=== PATIENT | male | born 1980 | race Caucasian/White ===

== ENCOUNTER 2019-12-08 15:41 | Outpatient (CLI) | payer OTHER, SELFPAY ==
--- NOTE | ~2019-12-08 | XR_ITS ---
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 No fracture or dislocation or joint effusion is evident. No periosteal reaction or bone destruction. Joint spaces are preserved. No radiopaque intra-articular loose body or chondrocalcinosis. IMPRESSION: No acute radiographic bony or soft tissue finding Reviewed, dictated and finalized at location B.
== END 2019-12-08 15:42 ==
PROVIDERS: PCP Internal Medicine; Visit Provider Internal Medicine
DX: M25.562 Pain in left knee (principal)
CPT/HCPCS: 73560

== ENCOUNTER 2020-02-11 19:42 | Inpatient (IN) | payer OTHER, SELFPAY ==
--- NOTE | ~2020-02-11 | CT_ITS ---
EXAMINATION: CT abdomen pelvis w con INDICATION: Epigastric pain TECHNIQUE: Computed tomographic images of the abdomen and pelvis were obtained after the administrati on of 100 cc of Omnipaque 350 intravenous contrast. The dose-length product (DLP) was 1189.63 mGy-cm. Automated exposure control and iterative reconstruction technique were employed. COMPARISON: 01/26/2018 FINDINGS: The lung bases are clear. The heart size is normal. There is focal fatty infiltration of th e liver adjacent to the ligamentum teres. Punctate calcifications in an otherwise normal spleen likel y represent healed granulomatous disease. The pancreas and adrenal glands are normal. A stone is pres ent in the gallbladder near the fundus. The fundus of the gallbladder demonstrates mild wall thickeni ng beyond the area of the stone. The remainder of the gallbladder is otherwise normal in appearance. There is a 1.2 cm cyst of the right kidney upper pole. Additional hypoattenuating lesions of the kidn eys are too small to characterize but likely reflect cysts as well. No pathologically enlarged abdomi nal or pelvic lymph nodes are identified. There is no free intraperitoneal gas or evidence of bowel o bstruction. The appendix is normal. There are changes of lumbar fusion at L4-5 and L5-S1. IMPRESSION: 1. Cholelithiasis with focal inflammation of the gallbladder fundus. Reviewed, dictated and finalized at location A.
[2020-02-11 19:47] VITALS: BP 144/87; PULSE 78; RESP 18; TEMP 37.1; O2SAT 100
--- NOTE | 2020-02-11 19:57 | ED.ABDPAIN ---
HPI - Abdominal Pain General Chief Complaint: Abdominal Pain Stated Complaint: gall bladder Time Seen by Provider: 02/11/20 19:46 Source: RN notes reviewed History of Present Illness HPI narrative: Patient presents emergency department from home for abdominal pain. Patient states symptoms began 2 days ago. Pain is located across the bilateral upper abdomen worse on the right than the left. States is described as sharp and stabbing in nature. States he has had problems with his gallbladder before in the past and this feels similar. Denies any fevers or chills chest pain shortness of breath nausea vomiting diarrhea or any other symptoms. States he is taking no pain medication this evening Related Data Home Medications Medication Instructions Recorded Confirmed ibuprofen 800 mg tablet 800 mg PO BID tablet 05/10/19 01/06/20 Allergies Allergy/AdvReac Type Severity Reaction Status Date / Time No Known Allergies Allergy Verified 02/11/20 19:44 Review of Systems Review of Systems: Narrative: Gen.: Denies fevers or chills ENT: Denies congestion Respiratory: Denies shortness of breath or cough CV: Denies chest pain or palpitations GI: See HPI denies burning, urgency, frequency or hematuria Musculoskeletal: Denies back pain or muscle pain Neuro: Denies numbness, tingling, weakness or focal weakness Skin: Denies rash Except as documented, all other systems reviewed and negative PMF Past Medical History Medical History (Updated 02/11/20 @ 22:00 by Yuri Graves DO) Essential hypertension Family History Family History (Updated 06/04/18 @ 08:34 by DOCTOR UNKNOWN) Other Asthma Cerebrovascular accident Depression Diabetes mellitus Family history of alcoholism Family history of arthritis Family history of attention deficit hyperactivity disorder (ADHD) Family history of cardiovascular disease Family history of hearing loss Family history of malignant neoplasm Family history of mental disorder Family history of migraine headaches Family history of obesity Family history of seizure disorder Hypertension Social History Social History Smoking status: Never smoker Alcohol intake: never Gender identity (if verbalized by the patient): Male Exam Narrative: Exam Narrative: APPEARANCE: No acute distress, nontoxic, resting in bed HEENT: Normocephalic, atraumatic, OMM RESPIRATORY: No respiratory distress, clear to auscultation bilaterally with no rhonchi wheezing or rales CARDIOVASCULAR: RRR s murmur ABDOMINAL: Soft, nondistended, tender palpation in epigastric, right upper quadrant and left upper quadrant, no tenderness right lower quadrant left lower quadrant, no rebound or guarding MUSCULOSKELETAl: Moves all extremities. No clubbing, cyanosis or edema. NEURO: Awake and alert. Following commands, speech normal, no focal deficits SKIN:: Warm, dry. Normal Color PSYCHIATRIC: Normal affect/mood Course Course Emergency Course: Discussed with Dr. Olivo presentation work-up. Agrees with admission at this time. Request pain started on Zosyn with consult to hospitalist for medical management Discussed with Dr. Abad presentation work-up and agrees with consult Discussed with patient and family results of workup and diagnosis. Discussed need for admission. Patient and family understand and agree to current treatment plan Vital Signs Vital signs: Vital Signs Temperature 98.7 F 02/11/20 19:47 Pulse Rate 78 02/11/20 19:47 Respiratory Rate 18 02/11/20 19:47 Blood Pressure 144/87 H 02/11/20 19:47 Pulse Oximetry 100 02/11/20 19:47 Temperature 97.8 F 02/11/20 21:46 Pulse Rate 89 02/11/20 21:46 Respiratory Rate 24 H 02/11/20 21:46 Blood Pressure 131/65 02/11/20 21:46 Pulse Oximetry 99 02/11/20 21:46 MDM - Abdominal Pain Lab Data Result diagrams: 02/11/20 20:00 02/11/20 20:00
[2020-02-11 20:13] LABS: Basophils Percent Auto 0.4 % (0.2-1.2); Eosinophils Percent Auto 0.2 % (0-4.4); Hematocrit 44.9 % (42.0-52.0); Hemoglobin 15.2 g/dL (14.0-18.0); Immature Granulocyte Absolute 0.02 K/mm3 (0.00-0.031); Immature Granulocyte Percent A 0.2 % (0-0.5); Lymphocytes Absolute Auto 2.46 K/mm3 (0.9-3.2); Lymphocytes Percent Auto 29.5 % (18.3-44.2); Mean Corpuscular HGB Conc 33.9 g/dl (32-36); Mean Corpuscular Hemoglobin 27.6 pg (26-34); Mean Corpuscular Volume 81.5 fl (80-100); Mean Platelet Volume 10.1 fl (7.4-10.4); Monocytes Absolute Auto 0.4 K/mm3 (0.1-0.6); Neutrophils Absolute Auto 5.4 K/mm3 (1.3-6.7); Neutrophils Percent Auto 64.7 % (45.5-73.1); Platelet Count Result 215 k/mm3 (150-375); Red Blood Count 5.51 M/mm3 (4.6-6.20); Red Cell Distribution Width 13.2 % (11.5-14.5); White Blood Count 8.3 K/mm3 (4.5-10.0)
[2020-02-11] MEDS: MORPHINE SULFATE (*CRX) 4 MG/ML INJ IV PUSH ×2 (20:13→22:06)
[2020-02-11] MEDS: SODIUM CHLORIDE 0.9% IV 1,000 ML 999 ML IV CONT (20:13)
[2020-02-11 20:24] LABS: Alanine Aminotransferase 28 U/L (4-50); Albumin Level 4.7 g/dL (3.5-5.1); Alkaline Phosphatase 63 U/L (38-126); Anion Gap 8 mmol/L (8-16); Aspartate Amino Transferase 23 U/L (17-59); Blood Urea Nitrogen 11 mg/dL (9-20); Calcium 10.2 mg/dL (8.4-10.2); Carbon Dioxide 29 mmol/L (22-30); Chloride 103 mmol/L (98-107); Estimated CRCL calculation 88 ml/min; Estimated Glomerular Filt Rate > 60; Glucose 101 mg/dL (75-110); Lipase 107 U/L (23-300); Potassium 3.3 mmol/L (3.4-5.0); Sodium 140 mmol/L (137-145)
[2020-02-11 20:54] VITALS: BP 123/85; PULSE 62; RESP 24; TEMP 37.2; O2SAT 100
--- NOTE | 2020-02-11 21:03 | PC.NURSE ---
Patient requesting additional pain medication, EDP aware.
[2020-02-11 21:09] LABS: Add Urine Microscopic? YES; Appearance Urine Clear (Clear); Bilirubin Urine Negative (Negative); Blood Urine Negative (Negative); Color Urine Yellow (Yellow); Glucose Urine UA Negative (Negative); Ketones Urine Negative (Negative); Leukocyte Esterase Ur Negative LEU/UL (Negative); Mucus Urine Moderate /lpf; Nitrate Urine Negative (Negative); Protein Urine 1+ mg/dL (Negative); RBC Urine 0-2 /hpf (0-2); Specific Grav Ur 1.018 (1.001-1.035); WBC Urine 0-3 /hpf
--- NOTE | 2020-02-11 21:45 | ECG_ITS ---
Measurements Intervals [place] Rate: 52 P: 30 VT: 177 QRS: 3 QRSD: 101 T: 14 QT: 402 QTc: 377 Interpretive Statements SINUS BRADYCARDIA BORDERLINE T WAVE ABNORMALITY- INFERIOR LEADS BORDERLINE ECG Electronically Signed On 02-12-2020 7:47:03 CDT by Bert Ny D.O.
[2020-02-11 21:46] VITALS: BP 131/65; PULSE 89; RESP 24; TEMP 36.6; O2SAT 99
[2020-02-11 22:31] VITALS: BP 128/95; PULSE 57; RESP 11; TEMP 37.1; O2SAT 99
--- NOTE | 2020-02-11 23:24 | PM.IMCN ---
Assessment and Plan Assessment and plan (1) Acute cholecystitis: Code(s): K81.0 - Acute cholecystitis Status: Acute Assessment and Plan: NPO, continue pain control per primary team. IV hydration overnight. Continue antibiotics per primary team. Continue general surgery recommendations for same. (2) Hypokalemia: Code(s): E87.6 - Hypokalemia Status: Acute Assessment and Plan: we will replace his potassium IV. Check BMP in a.m.. (3) Essential hypertension: Code(s): I10 - Essential (primary) hypertension Status: Chronic Assessment and Plan: stable. Monitor blood pressure. We will administer IV antihypertensives if needed overnight. (4) Hyperlipidemia: Qualifiers: Hyperlipidemia type: unspecified Qualified Code(s): E78.5 - Hyperlipidemia, unspecified Code(s): E78.5 - Hyperlipidemia, unspecified Status: Chronic Assessment and Plan: Resume home meds when appropriate Additional Plan Date of service was February 11, 2020 at approximately 10:00 p.m. HPI Data of Consult Consult date: 02/11/20 Requesting Physician: Eric Olivo MD Primary Care Provider: Shalom Pedersen MD Consult Narrative Narrative: Thank you for consulting us to see this 39-year-old male who presented to the hospital with severe upper abdominal pain that started this past Thursday. Patient describes having gallbladder attacks for the past few years and that his symptoms were very reminiscent of that although they would not go away. He finally decided to come to the hospital this evening as his pain was uncontrolled. He describes his abdominal pain as sharp and mostly right-sided and seems to radiate towards his back. The patient last ate this past Thursday and states that he cannot tolerate any food intake at this time. Associated symptoms include nausea but no vomiting. He denies any fever chills, shortness of breath, chest pain, vomiting, diarrhea, dysuria hematuria or rectal bleeding. The patient was evaluated emergency room this evening and CT abdomen pelvis demonstrated cholelithiasis with focal inflammation of the gallbladder fundus. Routine labs demonstrated mild hypokalemia. The patient was treated with wide-spectrum antibiotics including Zosyn. He was admitted to the general surgery service. On my encounter with the patient he still complaining of 10/10 abdominal pain. He has no other complaints at this time. Review of Systems Review of Systems: All systems reviewed & are unremarkable except as noted in HPI and below PMFSH Past Medical History Medical History Essential hypertension Hyperlipidemia Family History Family History Other Asthma Cerebrovascular accident Depression Diabetes mellitus Family history of alcoholism Family history of arthritis Family history of attention deficit hyperactivity disorder (ADHD) Family history of cardiovascular disease Family history of hearing loss Family history of malignant neoplasm Family history of mental disorder Family history of migraine headaches Family history of obesity Family history of seizure disorder Hypertension Social History Social History Smoking status: Former smoker Alcohol intake: current Alcohol use details: Rarely Gender identity (if verbalized by the patient): Male Meds Home Medications and Allergies Home Medications Medication Instructions Recorded Confirmed Type ibuprofen 800 mg tablet 800 mg PO BID tablet 05/10/19 01/06/20 History trazodone 100 mg tablet 100 mg PO DAILY #90 tablet 11/21/19 01/06/20 Rx potassium chloride 20 mEq 20 meq PO DAILY #30 tablet 12/20/19 01/06/20 Rx tablet,extended release losartan 50 mg tablet 50 mg PO DAILY #90 tablet 01/03/20
[2020-02-11 23:33] VITALS: BP 133/88; PULSE 60; RESP 18; TEMP 36.8; O2SAT 100; BMI 33.8
[2020-02-12] MEDS: MORPHINE SULFATE (*CRX) 4 MG/ML INJ IV PUSH ×11 (00:05→23:52)
--- NOTE | 2020-02-12 00:07 | ADMGEN ---
This patient, Eric Brooks, was admitted to [facility] Surg Room 321-. Patient/family oriented to hospital policies and general routines including ID bracelet, bed and alarms, visiting hours, pain management, procedures, bathroom and other care routines, personal items, smoking policy, room service/diet, and visiting hours. Valuables list has been completed. Information on how to activate the Rapid Response Team has been discussed. Patient/Family are encouraged to report perceived risks to care and to ask questions if they do not understand what they are told or what they should do.
[2020-02-12] MEDS: SODIUM CHLORIDE 0.9% IV 1,000 ML 125 ML IV CONT ×2 (00:43→12:25)
[2020-02-12] MEDS: KCL 20 MEQ/SW 100 ML 100 ML 50 MEQ IVPB (00:45)
[2020-02-12 06:00] VITALS: BP 106/71; PULSE 77; RESP 16; TEMP 36.6; O2SAT 100
[2020-02-12 06:58] LABS: Basophils Percent Auto 0.3 % (0.2-1.2); Eosinophils Percent Auto 0.6 % (0-4.4); Hemoglobin 12.1 g/dL (14.0-18.0); Immature Granulocyte Absolute 0.02 K/mm3 (0.00-0.031); Immature Granulocyte Percent A 0.3 % (0-0.5); Lymphocytes Absolute Auto 1.84 K/mm3 (0.9-3.2); Lymphocytes Percent Auto 29.5 % (18.3-44.2); Mean Corpuscular HGB Conc 33.6 g/dl (32-36); Mean Corpuscular Hemoglobin 27.4 pg (26-34); Mean Corpuscular Volume 81.6 fl (80-100); Mean Platelet Volume 9.9 fl (7.4-10.4); Monocytes Absolute Auto 0.4 K/mm3 (0.1-0.6); Monocytes Percent Auto 6.9 % (2.6-8.5); Neutrophils Absolute Auto 3.9 K/mm3 (1.3-6.7); Neutrophils Percent Auto 62.4 % (45.5-73.1); Platelet Count Result 155 k/mm3 (150-375); Red Blood Count 4.41 M/mm3 (4.6-6.20); Red Cell Distribution Width 13.1 % (11.5-14.5); White Blood Count 6.2 K/mm3 (4.5-10.0)
[2020-02-12 07:10] LABS: Alanine Aminotransferase 22 U/L (4-50); Albumin Level 3.6 g/dL (3.5-5.1); Alkaline Phosphatase 49 U/L (38-126); Anion Gap 3 mmol/L (8-16); Aspartate Amino Transferase 18 U/L (17-59); Bilirubin,Total 0.8 mg/dL (0.2-1.3); Blood Urea Nitrogen 12 mg/dL (9-20); Calcium 8.4 mg/dL (8.4-10.2); Carbon Dioxide 28 mmol/L (22-30); Chloride 106 mmol/L (98-107); Estimated CRCL calculation 97 ml/min; Estimated Glomerular Filt Rate > 60; Glucose 100 mg/dL (75-110); Lipase 125 U/L (23-300); Potassium 3.4 mmol/L (3.4-5.0); Sodium 137 mmol/L (137-145)
--- NOTE | 2020-02-12 13:34 | PM.IMPN ---
Progress Note: A&P Assessment and Plan (1) Acute cholecystitis: Code(s): K81.0 - Acute cholecystitis Status: Acute Assessment and Plan: Pt reports hx of biliary colic with known cholelithiasis. Most recent episode started Thursday and is worsening. CT abd/pelvis demonstrated cholelithiasis with focal inflammation of the gallbladder fundus. He received IV fluids overnight. He is on IV zosyn. Management per general surgery including diet, antibiotics, and analgesics. Continue antiemetics PRN. Discussed with Dr. Olivo and will start lovenox SQ for DVT prophylaxis. The tentative plan is for possible surgery tomorrow or Thursday. (2) Hypokalemia: Code(s): E87.6 - Hypokalemia Status: Acute Assessment and Plan: He takes 20mg PO potassium daily prior to admission. Resume home potassium and continue to monitor. (3) Essential hypertension: Onset Date: Unknown Code(s): I10 - Essential (primary) hypertension Status: Chronic Assessment and Plan: Blood pressures reviewed with reasonable control. Most recent BP 147/85. Resume amlodipine and losartan. Continue to monitor closely. (4) Hyperlipidemia: Onset Date: Unknown Qualifiers: Hyperlipidemia type: unspecified Qualified Code(s): E78.5 - Hyperlipidemia, unspecified Code(s): E78.5 - Hyperlipidemia, unspecified Status: Chronic Assessment and Plan: LFTs reviewed and normal. Resume rosuvastatin. (5) GENEVA (obstructive sleep apnea): Onset Date: Unknown Code(s): G47.33 - Obstructive sleep apnea (adult) (pediatric) Status: Acute Assessment and Plan: Pt may use CPAP with sleeping. He is in the process of trying to get a new CPAP for home. (6) Renal cyst, right: Code(s): N28.1 - Cyst of kidney, acquired Status: Acute Assessment and Plan: 1.2cm right renal cyst visualized with other hypoattenuating lesions too small to characterize but appear benign and cystic. Follow-up outpatient per PCP. Subjective Date/time seen: 02/12/20 13:34 Mr. Brooks is a 39 y.o. male with PMH significant for hypertension and hyperlipidemia who is seen in follow-up for acute cholecystitis. He reports a hx of biliary colic with known cholelithiasis. He reports that his current episode started Thursday after eating chicken strips and a cheeseburger. He reports 6-7/10 RUQ pain which radiates to the right side/back. He reports intermittent nausea. He denies vomiting. He does not have any appetite due to the discomfort and he has not eaten since . He denies chest pain, dyspnea, and cough. He denies subjective fever and chills. He denies leg pain and swelling. His last bowel movement was yesterday and regular. He denies urinary issues. Review of Systems Review of Systems: All systems reviewed & are unremarkable except as noted in HPI and below Exam Narrative: Exam Narrative: General: Obese, well-developed, healthy appearing 39 y.o. male lying supine in no acute distress. HEENT: Normocephalic and atraumatic. Sclerae anicteric. PERRL. EOMI. Oral mucosa dry. Neck: Supple. Cardiac: Regular rate and rhythm. S1 and S2 normal. Lungs: Effort normal. Lungs clear to auscultation without wheezes, rhonchi, or rales. Abdomen: Normoactive bowel sounds. Abdomen soft, non-distended, and tender to the RUQ/epigastrium with positive Simental's sign. Extremities: No lower extremity edema or calf tenderness. Pedal pulses 2+ bilaterally. Neurological: Alert and oriented. Exam non-focal to casual conversation. Speech is clear. Skin: Warm and dry. Psychiatric: Judgment and insight intact. Pleasant mood and appropriate affect. Objective Data Vital Signs Vital Signs: Vital Signs - 24 hr 02/11/20 19:47 02/11/20 20:54 02/11/20 21:46 Temperature 98.7 F 98.9 F 97.8 F Pulse Rate 78 62 89 Respiratory Rate 18 24 H 24 H Blood Pressure 144/87 H 123/85 13
[2020-02-12 14:00] VITALS: BP 147/85; PULSE 58; RESP 20; TEMP 36.6; O2SAT 99
--- NOTE | 2020-02-12 16:04 | PM.IMHP ---
H&P: HPI History of Present Illness Date/Time: 02/12/20 16:04 Chief complaint: Cholecystitis Narrative: Eric Brooks is a 39 year old disabled White male with PMH significant for hypertension and hyperlipidemia and Chronic pain in his back and shoulder after a fall from 2 stories. He is seen now for possible early acute cholecystitis. He reports a hx of biliary colic with known cholelithiasis. He reports that his current episode started Thursday after eating some chicken strips and then later cheeseburger. States that his residual diagnosis was 1-3 years ago at a hospital in [place]. At the time he did have health insurance his pain resolved so he did not have anything done about it. Patient presented to the emergency department from home for abdominal pain last night. Patient states symptoms began 2-3 days ago. Pain is located across the bilateral upper abdomen worse on the right than the left. States is described as sharp and stabbing in nature. States he has had problems with his gallbladder before in the past and this feels similar. Denies any fevers or chills chest pain shortness of breath nausea vomiting diarrhea or any other symptoms. Today he reports 6-7/10 RUQ pain which radiates to the right side/back. He reports intermittent nausea also. He denies vomiting. He does not have any appetite due to the discomfort and he has not eaten since . He denies chest pain, dyspnea, and cough. He denies subjective fever and chills. His last bowel movement was yesterday and he is usually regular with this. He denies urinary issues. Review of Systems Constitutional: Constitutional: Reports no additional constitutional complaints and Denies frequent falls Eyes: Eyes: Reports as per HPI Comments: Denies yellowing of the eyes ENT: Reports Normal hearing present, Denies dizziness and Reports other (Mucous membranes moist.) Cardiovascular: Cardiovascular: Denies chest pain, Denies palpitations, Denies dyspnea and Denies dyspnea on exertion Respiratory: Respiratory: Denies hemoptysis, Denies dyspnea, Denies dyspnea on exertion and Denies wheezing Gastrointestinal: Gastrointestinal: Reports as per HPI, Reports nausea and Reports vomiting ( none today, but some yesterday at home.) Genitourinary: Genitourinary: Denies hematuria, Denies nocturia and Denies urinary frequency Musculoskeletal: Musculoskeletal: Denies deformity and Reports other ( no clubbing,cyanosis, or edema) Comments: history of a fall from height with injury to his low back and shoulder. He has a history of a anterior approach to his spinal column for stabilization. Integumentary/Breasts: Skin/Breast: Denies new lesions, Denies rash and Denies unusual bruising Neurologic: Reports Normal hearing present, Denies dizziness, Denies frequent falls, Denies memory loss and Denies seizure-like activity Psychiatric: Psychiatric: Denies memory loss and Reports other ( normal mood and mental status) Endocrine: Endocrine: Denies cold intolerance and Denies palpitations Hematologic/Lymphatic: Hematologic/Lymphatic: Denies easy bleeding and Denies easy bruising Allergic/Immunologic: Allergic/Immunologic: Denies wheezing and Reports other ( no lymphadenopathy) [facility] Past Medical History Medical History (Updated 02/12/20 @ 16:23 by Eric Olivo MD) Back pain with history of spinal surgery (Unknown) Essential hypertension (Unknown) Hyperlipidemia (Unknown) Family History Family History Mother Asthma Depression Hypertension Family history of arthritis Mother Depression Father Depression Hypertension Diabetes mellitus Family history of arthritis Family history of hearing loss Family history of mental disorder Grandparent Asthma Family history of hearing loss Sibling Asthma Family history of attention deficit hyperactivity disorder (ADHD) Grandparent Hypertension Family history o
[2020-02-12] MEDS: KETOROLAC 30 MG/ML VIAL (*BKC) IV PUSH (16:23)
[2020-02-12] MEDS: ONDANSETRON INJ 4 MG/2 ML VIAL IV PUSH ×2 (20:03→23:36)
[2020-02-12] MEDS: FAMOTIDINE 20 MG TABLET PO (21:28)
[2020-02-12] MEDS: ENOXAPARIN 40 MG/0.4 ML SYRINGE SUB-Q (21:28)
[2020-02-12 22:00] VITALS: BP 147/83; PULSE 49; RESP 20; TEMP 36.7; O2SAT 99
[2020-02-12] MEDS: SODIUM CHLORIDE 0.9% IV 1,000 ML 75 ML IV CONT (23:51)
[2020-02-13] VITALS (13 sets, daily range): BP systolic 103–154; BP diastolic 58–98; PULSE 51–74; RESP 12–20; TEMP 36.4–36.8; O2SAT 96–100
[2020-02-13] MEDS: MORPHINE SULFATE (*CRX) 4 MG/ML INJ IV PUSH ×6 (01:53→23:23)
[2020-02-13] MEDS: ONDANSETRON INJ 4 MG/2 ML VIAL IV PUSH (05:54)
[2020-02-13 06:38] LABS: Basophils Percent Auto 0.3 % (0.2-1.2); Eosinophils Percent Auto 0.7 % (0-4.4); Hematocrit 37.3 % (42.0-52.0); Hemoglobin 12.8 g/dL (14.0-18.0); Immature Granulocyte Absolute 0.02 K/mm3 (0.00-0.031); Immature Granulocyte Percent A 0.3 % (0-0.5); Lymphocytes Absolute Auto 2.03 K/mm3 (0.9-3.2); Mean Corpuscular HGB Conc 34.3 g/dl (32-36); Mean Corpuscular Volume 81.6 fl (80-100); Mean Platelet Volume 9.9 fl (7.4-10.4); Monocytes Absolute Auto 0.4 K/mm3 (0.1-0.6); Neutrophils Absolute Auto 3.5 K/mm3 (1.3-6.7); Neutrophils Percent Auto 58.7 % (45.5-73.1); Platelet Count Result 169 k/mm3 (150-375); Red Blood Count 4.57 M/mm3 (4.6-6.20)
[2020-02-13 06:48] LABS: Alanine Aminotransferase 21 U/L (4-50); Albumin Level 3.9 g/dL (3.5-5.1); Alkaline Phosphatase 50 U/L (38-126); Anion Gap 7 mmol/L (8-16); Aspartate Amino Transferase 18 U/L (17-59); Blood Urea Nitrogen 7 mg/dL (9-20); Calcium 8.6 mg/dL (8.4-10.2); Carbon Dioxide 27 mmol/L (22-30); Chloride 104 mmol/L (98-107); Estimated CRCL calculation 117 ml/min; Estimated Glomerular Filt Rate > 60; Glucose 96 mg/dL (75-110); Lipase 153 U/L (23-300); Potassium 3.6 mmol/L (3.4-5.0); Sodium 138 mmol/L (137-145)
[2020-02-13] MEDS: FAMOTIDINE 20 MG TABLET PO ×2 (09:03→21:10)
--- NOTE | 2020-02-13 10:34 | WPDHPUPDATE1 ---
History and Physical Update Update Date/Time: 02/13/20 10:34 History and Physical has been reviewed, including an updated exam of the patient. There are NO changes in the patient's condition. Risks, benefits, and alternatives of a laparoscopic cholecystectomy, possible intraoperative cannula angiogram, and possible open cholecystectomy have been discussed and questions answered. Patient agrees to proceed with procedure.
[2020-02-13] MEDS: amLODIPine BESYLATE 5 MG TABLET 10 MG PO (10:54)
[2020-02-13] MEDS: DULoxetine HCL 60 MG CAPSULE.DR PO (11:52)
--- NOTE | 2020-02-13 12:20 | PC.NURSE ---
To OR per bed, IV locked. Report given to faxed to pre-op. SCDs sent with patient.
[2020-02-13] MEDS: LACTATED RINGERS 1,000 ML 30 ML IV CONT ×2 (13:30→16:50)
--- NOTE | 2020-02-13 13:53 | WPDANESEPPF ---
Anes - Initial Pre Proc Eval Procedure: Operation Date: 02/13/20 13:45 Proposed Procedures p Laparoscopic Cholecystectomy - Eric Olivo MD Date/Time: 02/13/20 13:53 Surgeon: Latasha Jiang PA-C Pre Op Diagnosis: Cholecystitis Patient Data Age: 39 Gender: M Height: 5 ft 10 in Weight: 107 kg Last Vital Signs Temp 36.6 C 02/13/20 13:29 Pulse 51 L 02/13/20 13:29 Resp 20 02/13/20 06:00 BP 144/73 H 02/13/20 13:29 Pulse Ox 100 02/13/20 13:29 Allergies Allergy/AdvReac Type Severity Reaction Status Date / Time No Known Allergies Allergy Verified 02/11/20 19:44 Home Medications Medication Instructions Recorded Confirmed Type ibuprofen 800 mg tablet 800 mg PO BID tablet 05/10/19 02/11/20 History trazodone 100 mg tablet 100 mg PO DAILY #90 tablet 11/21/19 02/11/20 Rx potassium chloride 20 mEq 20 meq PO DAILY #30 tablet 12/20/19 02/11/20 Rx tablet,extended release losartan 50 mg tablet 50 mg PO DAILY #90 tablet 01/03/20 02/11/20 Rx amlodipine 10 mg tablet 10 mg PO DAILY #90 tablet 01/06/20 02/11/20 Rx rosuvastatin 20 mg tablet 20 mg PO DAILY #90 tablet 01/06/20 02/11/20 Rx duloxetine 60 mg PO DAILY 02/11/20 02/11/20 History Laboratory Tests 02/13/20 02/13/20 02/13/20 06:16 06:16 11:36 WBC 6.0 K/mm3 K/mm3 (4.5-10.0) RBC 4.57 M/mm3 L M/mm3 (4.6-6.20) Hgb 12.8 g/dL L g/dL (14.0-18.0) Hct 37.3 % L % (42.0-52.0) MCV 81.6 fl fl (80-100) MCH 28.0 pg pg (26-34) MCHC 34.3 g/dl g/dl (32-36) RDW 13.0 % % (11.5-14.5) Plt Count 169 k/mm3 k/mm3 (150-375) MPV 9.9 fl fl (7.4-10.4) Immature Gran % (Auto) 0.3 % % (0-0.5) Neut % (Auto) 58.7 % % (45.5-73.1) Lymph % (Auto) 34.0 % % (18.3-44.2) [place] % (Auto) 6.0 % % (2.6-8.5) Eos % (Auto) 0.7 % % (0-4.4) Baso % (Auto) 0.3 % % (0.2-1.2) Lymph # (Auto) 2.03 K/mm3 K/mm3 (0.9-3.2) [place] # (Auto) 0.4 K/mm3 K/mm3 (0.1-0.6) Eos # (Auto) 0.0 K/mm3 K/mm3 (0-0.3) Baso # (Auto) 0.0 K/mm3 K/mm3 (0.0-0.1) Abs Immat Gran (auto) 0.02 K/mm3 K/mm3 (0.00-0.031) Absolute Neuts (auto) 3.5 K/mm3 K/mm3 (1.3-6.7) Absolute Nucleated RBC 0.0 K/mm3 K/mm3 (0.0-0.012) Nucleated RBC % 0.0 % % (0.0-0.2) Sodium 138 mmol/L mmol/L (137-145) Potassium 3.6 mmol/L mmol/L (3.4-5.0) Chloride 104 mmol/L mmol/L (98-107) Carbon Dioxide 27 mmol/L mmol/L (22-30) Anion Gap 7 mmol/L L mmol/L (8-16) BUN 7 mg/dL L D mg/dL (9-20) Creatinine 0.90 mg/dL mg/dL (0.7-1.3) Estim Creat Clear Calc 117 ml/min ml/min Estimated GFR > 60 (59 - ) Glucose 96 mg/dL mg/dL (75-110) Calcium 8.6 mg/dL mg/dL (8.4-10.2) Total Bilirubin 1.0 mg/dL mg/dL (0.2-1.3) AST 18 U/L U/L (17-59) ALT 21 U/L U/L (4-50) Alkaline Phosphatase 50 U/L U/L (38-126) Total Protein 6.0 g/dL L g/dL (6.3-8.2) Albumin 3.9 g/dL g/dL (3.5-5.1) Lipase 153 U/L U/L (23-300) Blood Type AB Positive Antibody Screen Negative Patient hx anesthesia problems: none Family hx anesthesia problems: none PMFSH Past Medical History Medical History Back pain with history of spinal surgery (Unknown) Essential hypertension (Unknown) Hyperlipidemia (Unknown) Family History Family History Mother Asthma Depression Hypertension Family history of arthritis Mother Depression Father Depression Hypertension Diabetes mellitus Family history of arthritis Family history of hearing loss Family history of mental disorder Gra
[2020-02-13] MEDS: BUPIVACAINE/EPINEPHRINE 0.5% 10 ML VIAL 30 ML INFILTRATE (15:21)
[2020-02-13] MEDS: KETOROLAC 30 MG/ML VIAL (*BKC) IV PUSH (16:29)
--- NOTE | 2020-02-13 16:46 | P.OP_ITS ---
Procedure Note - Detailed Date of procedure: 02/13/20 Pre-op diagnosis: Cholecystitis Chronic Cholecystitis with Cholelithiasis Post-op diagnosis: same Procedure performed: Laparoscopic Cholecystectomy Description of procedure: Patient was seen preoperatively in the holding area and risks, benefits and alternatives confirmed. Patient was taken to the operating room and general anesthesia was induced. A time out was then preformed with the surgery team confirming patient and site of surgery. The abdomen was prepped and draped in the usual sterile fashion. Incision was made just below the umbilicus with an 11 blade knife. I placed 2 stay sutures of O- Vicryl on either side of the mid- line fascia beneath the umbilicus and was then able to slide in the Lee cannula through the fascial defect into the peritoneum. First under low flow and then under high flow the abdomen was insufflated with carbon dioxide never exceeding a pressure of 14. Three 5 mm trocars were then introduced under direct vision. The following trocars were introduced under direct vision: a 5 mm in the epigastrium and two 5 mm trocars along the right costal margin laterally in the subcostal area. There was significant omen uriel adhesions to the underside of the gallbladder. These were taken down with blunt and sharp dissection using some Bovie cautery for hemostasis. We were able to dissect this completely away from the neck of the gallbladder. I then carefully used the L-shaped cautery and the [place] dissector to dissect out the triangle of Calot. I then was able to dissect out both the cystic duct and cystic artery and identify a window of safety. The gall bladder was grasped and the cystic duct and artery were dissected free and clipped with an 5 mm endo- clip motorcycle sales associate. The cystic duct and artery were clipped with use of 2 clips on the patient's side 1 on the gallbladder side utilizing a 5 mm endoclip-motorcycle sales associate. The cystic duct was then transected. The cystic artery was also transected at this point. The gall bladder was removed using electrocautery and then removed from the abdomen using a large 10 mm grasper via the umbilical incision. In order to get the large stone out of the abdomen within the gallbladder I did make the fascial defect slightly larger with Soliman scissors. The trocars were removed visualizing hemostasis and the remaining gas evacuated. The large trocar site at the umbilicus was closed with use of the 2 stay sutures of 0 Vicryl mentioned above and also two figure of 8 O-Vicryl sutures and 1 simple 0 Vicryl suture at the midline fascia level. The 2 stay sutures men tioned above on either side of the fascia were also tied together to help approximate this midline fascia. Further local anesthetic was placed into each incision for postop pain control. The skin incisions were closed with subcuticular suture of 4-0 Monocryl. Surgical glue then was applied to all the incisions. Patient tolerated the procedure well was taken to the recovery room in good condition. Anesthesia: GETA Surgeon: Eric Olivo MD Executive Casino Host: David HOLLIS, OR machinist first class Estimated blood loss (mL): 25 Drains: No Packing: No Pathology: yes (Gallbladder) Complications: No immediate complications Condition: stable Disposition: PACU Findings: The gallbladder appeared to be inflamed with significant omentum densely adherent to the lower 2/3 of the gallbladder. Once expose the gallbladder appears slightly yellowish in abnormal with a thickened wall. Upon removal there was a at least 2 cm size stone in the gallbladder.
[2020-02-13] MEDS: fentaNYL CITRATE INJ (*CRX) 100 MCG/2 ML VIAL 25 MCG IV PUSH ×10 (17:10→17:28)
--- NOTE | 2020-02-13 17:45 | PC.NURSE ---
Returned from OR per bed. Report received from RN.
--- NOTE | 2020-02-13 18:18 | PM.IMPN ---
Progress Note: A&P Assessment and Plan (1) Acute cholecystitis: Code(s): K81.0 - Acute cholecystitis Status: Acute Assessment and Plan: Pt reports hx of biliary colic with known cholelithiasis. CT abd/pelvis demonstrated cholelithiasis with focal inflammation of the gallbladder fundus. He was treated with IV zosyn. He underwent POD #0 s/p laparoscopic cholecystectomy which demonstrated inflamed gallbladder with yellow discoloration and thickened wall with at least 2cm sized stone. He tolerated the procedure well with no immediate complications documented. His pain is well-controlled and he is doing well. Management per general surgery including diet, antibiotics, and analgesics. Continue antiemetics PRN. (2) Hypokalemia: Code(s): E87.6 - Hypokalemia Status: Acute Assessment and Plan: He takes 20mg PO potassium daily prior to admission. Potassium is sufficient today at 3.6. Continue PO potassium and monitor BMP daily. (3) Essential hypertension: Onset Date: Unknown Code(s): I10 - Essential (primary) hypertension Status: Chronic Assessment and Plan: Blood pressures reviewed with reasonable control. Most recent BP is 131/79. Continue amlodipine and losartan. Continue to monitor closely. (4) Hyperlipidemia: Onset Date: Unknown Qualifiers: Hyperlipidemia type: unspecified Qualified Code(s): E78.5 - Hyperlipidemia, unspecified Code(s): E78.5 - Hyperlipidemia, unspecified Status: Chronic Assessment and Plan: LFTs reviewed and normal. Continue rosuvastatin. (5) GENEVA (obstructive sleep apnea): Onset Date: Unknown Code(s): G47.33 - Obstructive sleep apnea (adult) (pediatric) Status: Acute Assessment and Plan: Pt may use CPAP with sleeping. He is in the process of trying to get a new CPAP for home. (6) Renal cyst, right: Code(s): N28.1 - Cyst of kidney, acquired Status: Acute Assessment and Plan: 1.2cm right renal cyst visualized with other hypoattenuating lesions too small to characterize but appear benign and cystic. Follow-up outpatient per PCP. Subjective Date/time seen: 02/13/20 18:18 Mr. Brooks is a 39 y.o. male with PMH significant for hypertension and hyperlipidemia who is seen in follow-up for acute cholecystitis and is POD #0 s/p laparoscopic cholecystectomy by Dr. Olivo. He is seen post-op. He is recovering well with pain well-controlled. He denies nausea and vomiting. He reports that his prior pain is now gone and he only has incisional discomfort at this point. He denies dyspnea and chest pain. He denies subjective fever and chills. He has no other concerns at this time. Review of Systems Review of Systems: All systems reviewed & are unremarkable except as noted in HPI and below Exam Narrative: Exam Narrative: General: Obese, well-developed, healthy appearing 39 y.o. male lying on his left side in no acute distress. HEENT: Normocephalic and atraumatic. Oral mucosa moist. Neck: Supple. Cardiac: Regular rate and rhythm. S1 and S2 normal. Lungs: Lungs clear to auscultation bilaterally. Abdomen: Normoactive bowel sounds. Abdomen is soft, non-distended, and tender with gentle palpation at incisions. Extremities: No lower extremity edema or calf tenderness. Neurological: Alert and oriented. Exam non-focal to casual conversation. Speech is clear. Skin: Warm and dry. 4 trochar incisions well-approximated with skin glue. Psychiatric: Judgment and insight intact. Pleasant mood and appropriate affect. Objective Data Vital Signs Vital Signs: Vital Signs - 24 hr 02/12/20 22:00 02/13/20 00:19 02/13/20 06:00 Temperature 98.1 F 97.7 F Pulse Rate 49 L 51 L 54 L Respiratory Rate 20 16 20 Blood Pressure 147/83 H 138/98 H Pulse Oximetry 99 96 100 02/13/20 13:29 02/13/20 16:50 02/13/20 17:00 Temperature 97.9 F 97.8 F Pulse
[2020-02-13] MEDS: SENNA/DOCUSATE SODIUM TABLET 2 TAB PO (21:10)
[2020-02-13] MEDS: SODIUM CHLORIDE 0.9% IV 1,000 ML 75 ML IV CONT (22:46)
[2020-02-14] MEDS: MORPHINE SULFATE (*CRX) 2 MG/ML INJ IV PUSH (02:40)
[2020-02-14 03:27] VITALS: BP 152/84; PULSE 71; RESP 18; TEMP 36.9; O2SAT 99
[2020-02-14] MEDS: MORPHINE SULFATE (*CRX) 4 MG/ML INJ IV PUSH ×2 (04:40→06:44)
[2020-02-14 06:00] VITALS: BP 137/80; PULSE 59; RESP 20; TEMP 36.9; O2SAT 95
[2020-02-14 06:55] LABS: Hematocrit 37.8 % (42.0-52.0); Mean Corpuscular HGB Conc 34.4 g/dl (32-36); Mean Corpuscular Hemoglobin 27.8 pg (26-34); Mean Corpuscular Volume 80.9 fl (80-100); Mean Platelet Volume 10.1 fl (7.4-10.4); Platelet Count Result 176 k/mm3 (150-375); Red Blood Count 4.67 M/mm3 (4.6-6.20); Red Cell Distribution Width 12.7 % (11.5-14.5); White Blood Count 11.3 K/mm3 (4.5-10.0)
[2020-02-14 07:07] LABS: Alanine Aminotransferase 86 U/L (4-50); Albumin Level 3.8 g/dL (3.5-5.1); Alkaline Phosphatase 56 U/L (38-126); Anion Gap 7 mmol/L (8-16); Aspartate Amino Transferase 85 U/L (17-59); Blood Urea Nitrogen 7 mg/dL (9-20); Calcium 8.8 mg/dL (8.4-10.2); Carbon Dioxide 28 mmol/L (22-30); Chloride 104 mmol/L (98-107); Estimated CRCL calculation 106 ml/min; Estimated Glomerular Filt Rate > 60; Glucose 103 mg/dL (75-110); Potassium 3.7 mmol/L (3.4-5.0); Sodium 139 mmol/L (137-145)
[2020-02-14] MEDS: amLODIPine BESYLATE 5 MG TABLET 10 MG PO (08:46)
[2020-02-14] MEDS: DULoxetine HCL 60 MG CAPSULE.DR PO (08:47)
[2020-02-14] MEDS: ENOXAPARIN 40 MG/0.4 ML SYRINGE SUB-Q (08:47)
[2020-02-14] MEDS: FAMOTIDINE 20 MG TABLET PO (08:48)
[2020-02-14] MEDS: LOSARTAN POTASSIUM 50 MG TABLET PO (08:48)
[2020-02-14] MEDS: ROSUVASTATIN 10 MG TABLET 20 MG PO (08:48)
[2020-02-14] MEDS: POTASSIUM CHLORIDE 20 MEQ TABLET.ER PO (08:48)
[2020-02-14] MEDS: ONDANSETRON INJ 4 MG/2 ML VIAL IV PUSH (08:50)
[2020-02-14] MEDS: HYDROcodone/acetaminophen (*CRX) 7.5-325 MG TABLET 1 TAB PO ×2 (08:51→14:43)
[2020-02-14 10:00] VITALS: BP 136/69; PULSE 57; RESP 20; TEMP 37.1; O2SAT 98
[2020-02-14 14:00] VITALS: BP 131/83; PULSE 76; RESP 18; TEMP 37; O2SAT 96
--- NOTE | 2020-02-14 14:04 | PM.DS ---
DS: Admitting Diagnosis Admitting Diagnosis Admitting Diagnosis: Cholecystitis with cholelithiasis 2. hypertension 3. anxiety DS: Discharge Diagnosis Discharge Diagnosis (1) Cholelithiasis without obstruction: Onset Date: Unknown Code(s): K80.20 - Calculus of gallbladder without cholecystitis without obstruction Status: Acute Assessment and Plan: this was the main reason for admission. Patient was admitted for pain control initially. However, continued to have a slightly elevated white count with continuous pain and therefore was felt to have acute cholecystitis. At the time of surgery he did have significant inflammation of the wall the gallbladder and the omentum was densely adherent to the lower half the gallbladder consistent with acute cholecystitis. Pathology is still pending at this time. Patient is significantly improved after surgery. (2) Back pain with history of spinal surgery: Onset Date: Unknown Code(s): M54.9 - Dorsalgia, unspecified Status: Chronic Assessment and Plan: Patient has a history of a previous fall and subsequent surgical there mention for repair of fractures including a anterior approach to the spine for stabilization. He continues to is suffer from problems with this injury and has chronic pain and is disabled. (3) Hyperlipidemia: Onset Date: Unknown Qualifiers: Hyperlipidemia type: unspecified Qualified Code(s): E78.5 - Hyperlipidemia, unspecified Code(s): E78.5 - Hyperlipidemia, unspecified Status: Chronic Assessment and Plan: Patient is on home medications whilst will be resumed for this. (4) Essential hypertension: Onset Date: Unknown Code(s): I10 - Essential (primary) hypertension Status: Chronic Assessment and Plan: Patient is on home medications which will be resumed for this. (5) GENEVA (obstructive sleep apnea): Onset Date: Unknown Code(s): G47.33 - Obstructive sleep apnea (adult) (pediatric) Status: Acute Assessment and Plan: Patient will resume usual home treatment for this. DS: Summary Hospital Course Reason for hospitalization: Pain secondary to acute cholecystitis with cholelithiasis Hospital Course: patient had uneventful hospital course. Initially pain medicine was used to try to control the pain related to his acute cholecystitis with cholelithiasis. Since this did not resolve we proceeded to operative intervention. He had an unremarkable laparoscopic cholecystectomy with signs of acute inflammation. He improved afterwards and is now ready for discharge. Appreciate the hospitalist's help in caring for his other medical problems including hyperlipidemia and hypertension with anxiety. Status at Discharge Cognitive/behavioral status at discharge: Her tear to baseline I bel Functional status at discharge: independent ambulation Overall status at discharge: patient is not back to baseline ( Still has little recovery to be back to baseline) Time Spent with Patient Time attestation: Total time spent providing and/or coordinating discharge services: Time spent: Less than 30 minutes Exam Const: General: cooperative, no acute distress, alert and awake Orientation/consciousness: patient oriented x3 HENMT: Mouth: Yes moist mucous membranes Neck: Neck: normal visual inspection Chest: Chest palpation & inspection: normal inspection of the chest Resp: Effort & Inspection: normal respiratory effort Auscultation: clear to auscultation bilaterally Cardio: Jugular venous distension: no JVD Rate: regular rate Rhythm: regular rhythm GI: Inspection: incision ( clean and dry with surgical glue in place. Slight bruising at the umbil ) GI Palp: Yes Soft to palpation and Yes Tenderness to palpation present (GI) ( near the umbilicus where there is also some purplish bruising) Auscultation: normal bowel sounds Rectal Exam: deferred Neuro
--- NOTE | 2020-02-14 15:03 | PM.IMPN ---
Progress Note: A&P Assessment and Plan (1) Acute cholecystitis: Code(s): K81.0 - Acute cholecystitis Status: Acute Assessment and Plan: Pt reports hx of biliary colic with known cholelithiasis. CT abd/pelvis demonstrated cholelithiasis with focal inflammation of the gallbladder fundus. He was treated with IV zosyn. He underwent POD #1 s/p laparoscopic cholecystectomy which demonstrated inflamed gallbladder with yellow discoloration and thickened wall with at least 2cm sized stone. He tolerated the procedure well with no immediate complications documented. His pain is controlled with oral medications. He tolerated clear liquid diet without any issues but is having some nausea associated with grilled chicken. From a medical standpoint patient is stable for discharge once surgery feels he is stable postop. (2) Hypokalemia: Code(s): E87.6 - Hypokalemia Status: Acute Assessment and Plan: He takes 20mg PO potassium daily prior to admission. Potassium is sufficient today at 3.7. Continue PO potassium upon discharge. (3) Essential hypertension: Onset Date: Unknown Code(s): I10 - Essential (primary) hypertension Status: Chronic Assessment and Plan: Blood pressures reviewed with reasonable control. Most recent BP is 136/69. Continue amlodipine and losartan. (4) Hyperlipidemia: Onset Date: Unknown Qualifiers: Hyperlipidemia type: unspecified Qualified Code(s): E78.5 - Hyperlipidemia, unspecified Code(s): E78.5 - Hyperlipidemia, unspecified Status: Chronic Assessment and Plan: LFTs are slightly elevated in the 80s today but he had a lap choly completed yesterday which can cause some liver irritation. Will leave it up to surgery if repeat CMP needs to be completed upon discharge. He can otherwise continue rosuvastatin. (5) GENEVA (obstructive sleep apnea): Onset Date: Unknown Code(s): G47.33 - Obstructive sleep apnea (adult) (pediatric) Status: Acute Assessment and Plan: Pt may use CPAP with sleeping. He is in the process of trying to get a new CPAP for home. (6) Renal cyst, right: Code(s): N28.1 - Cyst of kidney, acquired Status: Acute Assessment and Plan: 1.2cm right renal cyst visualized with other hypoattenuating lesions too small to characterize but appear benign and cystic. Follow-up outpatient per PCP. Time Spent With Patient Time with patient: 25 - 35 minutes Subjective Date/time seen: 02/14/20 15:03 Interval history: Date of service 02/14/2020: Patient reports feeling well this morning after his surgery yesterday. He tolerated a clear liquid diet without any issues. He is trying to eat a piece of grilled chicken at this time reports feeling nauseous. I told the stop beating we give him some antiemetics. He states his 1st time he has had solid food about 1 week. He also reports some increased abdominal pain mostly around his umbilicus where the surgical scars located. He otherwise denies any chest pain, shortness of breath, cough, fever, chills, vomiting, diarrhea, constipation, leg swelling, calf pain or any other symptoms at this time. Review of Systems Review of Systems: All systems reviewed & are unremarkable except as noted in HPI and below Exam Narrative: Exam Narrative: General: 39-year-old man sitting up in bed trying to eat grilled chicken, holding his stomach. Appears comfortable. In no acute distress. Skin: No jaundice or cyanosis. Good skin turgor. Neck: Full range of motion. Supple. Respiratory: Lungs are clear to auscultation bilaterally. No bony chest wall tenderness. Cardiovascular: The heart has a regular rate and rhythm without murmur. Lower extremities: No lower extremity edema. Distal pulses are easily palpated. No calf tenderness to palpation. Gastrointestinal: Postsurgical scars with some ecchymosis noted moving around
== END 2020-02-14 16:10 | disposition home or self-care (01) | DRG 419 ==
LOC: ANHED 22:00 → ANH3MEDSUR 22:17
PROVIDERS: Admitting Provider Surgery; Emergency Provider Emergency Medicine; PCP Internal Medicine; Visit Provider Physician Assistant
PROC: 0FT44ZZ Resection of Gallbladder, Percutaneous Endoscopic Approach (ICD-10-PCS; CPT 47562; principal; 2020-02-13 13:45)
DX: K80.00 Calculus of gallbladder with acute cholecystitis without obstruction (principal); M54.9 Dorsalgia, unspecified; E78.5 Hyperlipidemia, unspecified; Z23 Encounter for immunization; I10 Essential (primary) hypertension; G47.33 Obstructive sleep apnea (adult) (pediatric); E87.6 Hypokalemia; N28.1 Cyst of kidney, acquired; E66.9 Obesity, unspecified; Z68.33 Body mass index [BMI] 33.0-33.9, adult; Z87.891 Personal history of nicotine dependence
CPT/HCPCS: 36415; 74177; 80053; 81001; 83690; 85025; 85027; 86850; 86900; 86901; 88304; 90471; 90686; 93005; 96361; 96365; 96366; 96372; 96375; 96376; 99285; A9270; G0008; G0378; J0131; J0330; J1100; J1650; J1885; J2250; J2270; J2405; J2543; J2704; J2710; J3010; J3480; J7030; J7120; Q9966; Q9967

== ENCOUNTER 2020-07-16 04:16 | Emergency (ER) | payer OTHER, SELFPAY ==
[2020-07-16 04:22] VITALS: BP 153/94; PULSE 65; RESP 18; TEMP 37; O2SAT 100
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
[2020-07-16] MEDS: diazePAM INJ (*CRX) 10 MG/2 ML SYRINGE 5 MG IV PUSH (04:34)
[2020-07-16 04:45] LABS: Basophils Percent Auto 0.4 % (0.2-1.2); Eosinophils Absolute Auto 0.2 K/mm3 (0-0.3); Eosinophils Percent Auto 2.7 % (0-4.4); Hematocrit 39.3 % (42.0-52.0); Hemoglobin 13.3 g/dL (14.0-18.0); Immature Granulocyte Absolute 0.01 K/mm3 (0.00-0.031); Immature Granulocyte Percent A 0.1 % (0-0.5); Lymphocytes Absolute Auto 2.37 K/mm3 (0.9-3.2); Lymphocytes Percent Auto 33.3 % (18.3-44.2); Mean Corpuscular HGB Conc 33.8 g/dl (32-36); Mean Corpuscular Hemoglobin 28.1 pg (26-34); Mean Corpuscular Volume 83.1 fl (80-100); Mean Platelet Volume 9.3 fl (7.4-10.4); Monocytes Absolute Auto 0.6 K/mm3 (0.1-0.6); Monocytes Percent Auto 8.6 % (2.6-8.5); Neutrophils Absolute Auto 3.9 K/mm3 (1.3-6.7); Neutrophils Percent Auto 54.9 % (45.5-73.1); Platelet Count Result 174 k/mm3 (150-375); Red Blood Count 4.73 M/mm3 (4.6-6.20); White Blood Count 7.1 K/mm3 (4.5-10.0)
[2020-07-16 04:57] LABS: Alanine Aminotransferase 33 U/L (4-50); Albumin Level 3.8 g/dL (3.5-5.1); Alkaline Phosphatase 56 U/L (38-126); Anion Gap 5 mmol/L (8-16); Aspartate Amino Transferase 23 U/L (17-59); Bilirubin,Total 0.4 mg/dL (0.2-1.3); Blood Urea Nitrogen 14 mg/dL (9-20); Calcium 8.5 mg/dL (8.4-10.2); Carbon Dioxide 29 mmol/L (22-30); Chloride 106 mmol/L (98-107); Estimated CRCL calculation 116 ml/min; Estimated Glomerular Filt Rate > 60; Glucose 90 mg/dL (75-110); Potassium 3.5 mmol/L (3.4-5.0); Sodium 140 mmol/L (137-145)
[2020-07-16 05:24] VITALS: BP 124/73; PULSE 48; RESP 19; O2SAT 99
[2020-07-16 06:07] VITALS: BP 118/79; PULSE 58; RESP 16; O2SAT 99
== END 2020-07-16 06:11 | disposition home or self-care (01) ==
PROVIDERS: Emergency Provider Emergency Medicine; PCP Internal Medicine
DX: M54.5 Low back pain (principal); G89.21 Chronic pain due to trauma; I10 Essential (primary) hypertension; E78.5 Hyperlipidemia, unspecified
CPT/HCPCS: 36415; 80053; 85025; 96374; 99284; J3360

== ENCOUNTER 2020-08-22 16:54 | Outpatient (CLI) | payer OTHER, MEDICARE, SELFPAY | END 2020-08-22 16:55 | disposition home or self-care (01) | PROVIDERS: PCP Internal Medicine | DX: Z23 Encounter for immunization (principal) | CPT/HCPCS: 0001A; 91300 ==

== ENCOUNTER 2020-09-02 21:05 | Emergency (ER) | payer OTHER, SELFPAY ==
[2020-09-02] VITALS (22 sets, daily range): BP systolic 125–146; BP diastolic 80–97; PULSE 54–66; RESP 12–19; TEMP 36.6; O2SAT 95–99
--- NOTE | ~2020-09-02 | XR_ITS ---
EXAMINATION: XR chest 2V DATE: 09/02/2020 22:15 INDICATION: Chest pain TECHNIQUE: AP and lateral views of the chest are obtained. COMPARISON: 04/20/2014 FINDINGS: The lungs are free of acute opacities. There is no pleural effusion or pneumothorax. The ca rdiomediastinal silhouette is normal. There is mild thoracic spondylosis. IMPRESSION: 1. No acute cardiopulmonary abnormality. Reviewed, dictated and finalized at location A.
--- NOTE | 2020-09-02 21:14 | ED.GENADULT ---
HPI - General Adult General Chief complaint: Chest Pain Stated complaint: chest pain Time Seen by Provider: 09/02/20 21:10 Related Data Allergies Allergy/AdvReac Type Severity Reaction Status Date / Time No Known Allergies Allergy Verified 09/02/20 21:15 [facility] Past Medical History Medical History (Updated 07/19/20 @ 15:17 by Shalom Pedersen MD) Back pain with history of spinal surgery (Unknown) Essential hypertension (Unknown) Hyperlipidemia (Unknown) Family History Family History Mother Asthma Depression Hypertension Family history of arthritis Mother Depression Father Depression Hypertension Diabetes mellitus Family history of arthritis Family history of hearing loss Family history of mental disorder Grandparent Asthma Family history of hearing loss Sibling Asthma Family history of attention deficit hyperactivity disorder (ADHD) Grandparent Hypertension Family history of arthritis Family history of cardiovascular disease Family history of hearing loss Other Cerebrovascular accident Diabetes mellitus Family history of alcoholism Family history of malignant neoplasm Other Family history of migraine headaches Family history of obesity Family history of seizure disorder Social History Social History (Updated 07/19/20 @ 14:59 by Patricio Hugo [facility]) Smoking status: Current every day smoker Alcohol intake: never Substance use: current Substance use type: marijuana Other substance usage details: Daily usage Gender identity (if verbalized by the patient): Male Spiritual care concerns: No Course Vital Signs Vital signs: Vital Signs Temperature 36.6 C 09/02/20 21:06 Pulse Rate 61 09/02/20 21:06 Respiratory Rate 15 09/02/20 21:06 Blood Pressure 145/97 H 09/02/20 21:06 Pulse Oximetry 99 09/02/20 21:06 Temperature 36.6 C 09/02/20 21:06 Pulse Rate 61 09/02/20 21:06 Respiratory Rate 15 09/02/20 21:06 Blood Pressure 145/97 H 09/02/20 21:06 Pulse Oximetry 99 09/02/20 21:06 Medical Decision Making Vital Signs Vital Signs: Vital Signs Temperature 36.6 C 09/02/20 21:06 Pulse Rate 61 09/02/20 21:06 Respiratory Rate 15 09/02/20 21:06 Blood Pressure 145/97 H 09/02/20 21:06 Pulse Oximetry 99 09/02/20 21:06 Temperature 36.6 C 09/02/20 21:06 Pulse Rate 61 04/18/21 21:06 Respiratory Rate 15 09/02/20 21:06 Blood Pressure 145/97 H 09/02/20 21:06 Pulse Oximetry 99 09/02/20 21:06 ECG Data EKG #1: Attestation: I personally reviewed and interpreted this ECG as follows: ECG completion date: 09/02/20 ECG completion time: 21:11 EKG Interpretation: normal rate, sinus rhythm, no ectopy and left axis Discharge Plan Discharge Prescriptions: No Action rosuvastatin [Crestor] 20 mg tablet 20 mg PO DAILY Qty: 90 RF: 1 trazodone 50 mg tablet 50 mg PO QHS Qty: 30 RF: 2 cyclobenzaprine 10 mg tablet 10 mg PO TID PRN (Reason: muscle spasm) Qty: 10 RF: 0 ibuprofen [IBU] 600 mg tablet 600 mg PO Q6H PRN (Reason: pain) Qty: 14 RF: 0 duloxetine 60 mg capsule,delayed release(DR/EC) 60 mg PO DAILY Qty: 90 RF: 1 losartan 50 mg tablet 50 mg PO DAILY Qty: 90 RF: 1 potassium chloride 20 mEq tablet extended release 20 meq PO DAILY Qty: 90 RF: 0 amlodipine 10 mg tablet 10 mg PO DAILY Qty: 90 RF: 1
--- NOTE | 2020-09-02 21:19 | ED.GENADULT ---
HPI - General Adult General Chief complaint: Chest Pain Stated complaint: chest pain Time Seen by Provider: 09/02/20 21:10 Source: patient History of Present Illness HPI narrative: Patient is a 40 y/o male complaining of left sided chest pain starting 1 week ago. He describes his chest pain as both poking and someone sitting on his chest pain. He rates his pain as 6-7/10. There is no alleviating or exacerbating factor. He also has some SOB and headache. Related Data Allergies Allergy/AdvReac Type Severity Reaction Status Date / Time No Known Allergies Allergy Verified 09/02/20 21:15 Review of Systems Constitutional: Constitutional: Denies chills, Denies fever(s), Reports headache(s) and Denies weakness Eyes: Eyes: Denies blurry vision ENT: Reports headache(s) and Denies neck pain Cardiovascular: Cardiovascular: Reports chest pain and Reports dyspnea Respiratory: Respiratory: Denies cough and Reports dyspnea Gastrointestinal: Gastrointestinal: Denies abdominal pain, Denies diarrhea, Denies nausea and Denies vomiting Genitourinary: Genitourinary: Denies hematuria and Denies dysuria Musculoskeletal: Musculoskeletal: Denies back pain and Denies neck pain Neurologic: Reports headache(s) and Denies weakness PMFSH Past Medical History Medical History (Updated 09/03/20 @ 00:51 by Ale Ling MD) Back pain with history of spinal surgery (Unknown) Essential hypertension (Unknown) Hyperlipidemia (Unknown) Family History Family History Mother Asthma Depression Hypertension Family history of arthritis Mother Depression Father Depression Hypertension Diabetes mellitus Family history of arthritis Family history of hearing loss Family history of mental disorder Grandparent Asthma Family history of hearing loss Sibling Asthma Family history of attention deficit hyperactivity disorder (ADHD) Grandparent Hypertension Family history of arthritis Family history of cardiovascular disease Family history of hearing loss Other Cerebrovascular accident Diabetes mellitus Family history of alcoholism Family history of malignant neoplasm Other Family history of migraine headaches Family history of obesity Family history of seizure disorder Social History Social History Smoking status: Current every day smoker Alcohol intake: never Substance use: current Substance use type: marijuana Other substance usage details: Daily usage Gender identity (if verbalized by the patient): Male Spiritual care concerns: No Exam Const: General: no acute distress and well developed Orientation/consciousness: oriented to person, oriented to place, oriented to time and patient oriented x3 HENMT: Head: normocephalic Ears: external ears normal General nose exam: Normal external nose present Eyes: General: appearance normal, both eyes and all related structures Conjunctivae: conjunctivae normal Neck: Neck: normal visual inspection and full ROM Chest: Chest palpation & inspection: normal inspection of the chest and no tenderness Resp: Effort & Inspection: normal respiratory effort Auscultation: clear to auscultation bilaterally Cardio: Rate: regular rate Rhythm: regular rhythm GI: GI Palp: No abdominal tenderness and Yes Soft to palpation Skin: General skin exam: normal color and turgor normal Neuro: General: oriented to person, oriented to place, oriented to time and patient oriented x3 Cognition (Neuro): normal cognition Extrem: General: normal to inspection, full ROM and no pedal edema Psych: Appearance: grossly normal Mental Status: mental status grossly normal Affect: normal affect Course Vital Signs Vital signs: Vital Signs Temperature 36.6 C 09/02/20 21:06 Pulse Rate 61 09/02/20 21:06 Respiratory Rate 15 09/02/20 21:06 Blood Pressure 145/97 H 0
--- NOTE | 2020-09-02 21:44 | ECG_ITS ---
Measurements Intervals [place] Rate: 65 P: 38 [place]: 188 QRS: -1 QRSD: 98 T: 12 QT: 413 QTc: 432 Interpretive Statements SINUS RHYTHM MINIMAL Q WAVES- HIGH LATERAL LEADS BORDERLINE ST-T WAVE ABNORMALITY- INFERIOR LEADS BASELINE ARTIFACT- II, III, AVR, AVL, AVF, V1-V6 BORDERLINE ECG Electronically Signed On 09-02-2020 22:03:45 CDT by Bert Ny D.O.
--- NOTE | 2020-09-02 22:06 | PC.NURSE ---
Patient taken to radiology.
[2020-09-02 22:13] LABS: Basophils Percent Auto 0.4 % (0.2-1.2); Eosinophils Absolute Auto 0.1 K/mm3 (0-0.3); Eosinophils Percent Auto 0.8 % (0-4.4); Hematocrit 42.1 % (42.0-52.0); Immature Granulocyte Absolute 0.03 K/mm3 (0.00-0.031); Immature Granulocyte Percent A 0.4 % (0-0.5); Lymphocytes Absolute Auto 2.07 K/mm3 (0.9-3.2); Lymphocytes Percent Auto 25.1 % (18.3-44.2); Mean Corpuscular HGB Conc 35.6 g/dl (32-36); Mean Corpuscular Hemoglobin 29.1 pg (26-34); Mean Corpuscular Volume 81.7 fl (80-100); Monocytes Absolute Auto 0.4 K/mm3 (0.1-0.6); Monocytes Percent Auto 4.6 % (2.6-8.5); Neutrophils Absolute Auto 5.7 K/mm3 (1.3-6.7); Neutrophils Percent Auto 68.7 % (45.5-73.1); Platelet Count Result 206 k/mm3 (150-375); Red Blood Count 5.15 M/mm3 (4.6-6.20); Red Cell Distribution Width 12.8 % (11.5-14.5); White Blood Count 8.3 K/mm3 (4.5-10.0)
[2020-09-02 22:24] LABS: Anion Gap 6 mmol/L (8-16); Blood Urea Nitrogen 13 mg/dL (9-20); Calcium 9.2 mg/dL (8.4-10.2); Carbon Dioxide 26 mmol/L (22-30); Chloride 109 mmol/L (98-107); Estimated CRCL calculation 119 ml/min; Estimated Glomerular Filt Rate > 60; Glucose 100 mg/dL (75-110); INR 0.9; Partial Thromboplastin Time 26.9 SECONDS (22.3-36.8); Potassium 3.3 mmol/L (3.4-5.0); Prothrombin Time 12.7 Seconds (11.1-14.7); Sodium 141 mmol/L (137-145)
[2020-09-02 22:36] LABS: Troponin I < 0.012 ng/mL (0.000-0.034)
[2020-09-02 22:51] LABS: D Dimer 0.27 ug/mL (<0.48)
[2020-09-03 00:05] VITALS: PULSE 56; RESP 13; O2SAT 96
[2020-09-03 00:15] VITALS: PULSE 59; RESP 15; O2SAT 95
[2020-09-03] MEDS: POTASSIUM CHLORIDE 20 MEQ TABLET PO (00:36)
[2020-09-03 00:44] LABS: Troponin I < 0.012 ng/mL (0.000-0.034)
[2020-09-03 00:59] VITALS: BP 151/98; PULSE 66; RESP 15; O2SAT 97
== END 2020-09-03 01:00 | disposition home or self-care (01) ==
PROVIDERS: Emergency Provider Emergency Medicine; PCP Internal Medicine
DX: R07.9 Chest pain, unspecified (principal); R51.9 Headache, unspecified; I10 Essential (primary) hypertension; E78.5 Hyperlipidemia, unspecified; F17.200 Nicotine dependence, unspecified, uncomplicated; R94.31 Abnormal electrocardiogram [ECG] [EKG]
CPT/HCPCS: 36415; 71046; 80048; 84484; 85025; 85380; 85610; 85730; 93005; 99284; A9270

== ENCOUNTER 2020-09-12 03:46 | Observation (INO) | payer OTHER, SELFPAY ==
[2020-09-12] VITALS (11 sets, daily range): BP systolic 120–135; BP diastolic 76–97; PULSE 57–69; RESP 17–20; TEMP 36.1–37.1; O2SAT 91–100; BMI 35.4
--- NOTE | ~2020-09-12 | XR_ITS ---
EXAMINATION: XR chest 2V DATE: 09/12/2020 04:19 INDICATION: Midsternal chest pain. TECHNIQUE: Frontal and lateral views of the chest were obtained. COMPARISON: Chest 2 views 09/02/2020, CT abdomen and pelvis 02/11/2020 FINDINGS: The chest demonstrates clear lungs without pneumonia, pleural effusion, or pneumothorax. Th e heart size is normal. IMPRESSION: 1. No acute cardiopulmonary disease. Reviewed, dictated and finalized at location A.
--- NOTE | 2020-09-12 03:52 | PC.NURSE ---
Pt presents to ED with complaints hypertension and chest pain that onset approx x2 hours ago. Pt states his BP medications were changed x1 week ago and he was prescribed 100mg losartan and advised to take one extra tablet daily if BP uncontrolled. Pt states at 0215 BP was 200/100 so he took an extra tablet of 100 mg losartan. Pt states at that time chest pain onset. Pain noted to right chest and radiates to right arm. Pt denies nvd, sob and visual disturbances with chest pain. Pt states chest pain has been persistent and intermittent for the past 3weeks. Pt provided x2 nitro, 324mg aspirin and 4mg zofran by EMS while en route to ED. Pt states chest pain has improved and is rated 4/10 at this time. All vital monitoring equipment applied. Vitals are stable and pt in no obvious distress. Pt provided call button and advised to press call button for assistance.
--- NOTE | 2020-09-12 03:52 | PC.NURSE ---
EKG completed at bedside.
--- NOTE | 2020-09-12 04:03 | PC.NURSE ---
Urine specimen collected, pt provided warm blanket and lights dimmed for comfort. Pt advised to press call button for assistance.
--- NOTE | 2020-09-12 04:12 | ECG_ITS ---
Measurements Intervals [place] Rate: 58 P: 20 [place]: 190 QRS: -5 QRSD: 107 T: 18 QT: 399 QTc: 393 Interpretive Statements SINUS BRADYCARDIA INCOMPLETE RIGHT BUNDLE BRANCH BLOCK BORDERLINE ECG Electronically Signed On 09-12-2020 7:10:19 CDT by Bert Ny D.O.
--- NOTE | 2020-09-12 04:27 | ED.CHESTPAIN ---
HPI - Chest Pain General Chief Complaint: Chest Pain Stated Complaint: HTN Time Seen by Provider: 09/12/20 04:12 Source: patient Mode of arrival: EMS Limitations: no limitations History of Present Illness HPI narrative: Patient is a 40-year-old male complaining of chest pain, midsternal, 9 out of 10, pressure, nonradiating that started 2 hours prior to arrival. Patient also complaining of elevated blood pressure 200/100 at home. Patient was given nitro and aspirin by EMS which provided relief, pain down to 3 out of 10 upon arrival to the emergency room. Patient denies any shortness of breath abdominal pain, nausea, vomiting, diaphoresis, fever or chills. Related Data Home Medications Medication Instructions Recorded Confirmed acetaminophen 500 mg capsule 500 mg PO Q6H PRN 09/04/20 09/04/20 simethicone 125 mg capsule 125 mg PO DAILY PRN 09/04/20 09/04/20 Allergies Allergy/AdvReac Type Severity Reaction Status Date / Time No Known Allergies Allergy Verified 09/04/20 13:39 Review of Systems Review of Systems: All systems reviewed & are unremarkable except as noted in HPI and below Constitutional: Constitutional: Denies body ache(s), Denies chills, Denies excessive sweating, Denies fatigue, Denies fever(s), Denies headache(s), Denies lethargy, Denies malaise, Denies weakness and Denies weight loss Eyes: Eyes: Denies blurry vision, Denies change in vision and Denies loss of vision ENT: Denies dizziness, Denies ear discharge, Denies headache(s), Denies lip swelling, Denies epistaxis, Denies nasal congestion, Denies neck pain, Denies throat swelling and Denies tongue swelling Cardiovascular: Cardiovascular: Denies diaphoresis, Denies rapid heart rate, Denies edema, Denies irregular heart rhythm, Denies lightheadedness, Denies palpitations, Denies dyspnea and Denies dyspnea on exertion Respiratory: Respiratory: Denies chest congestion, Denies cough, Denies hemoptysis, Denies dyspnea and Denies dyspnea on exertion Gastrointestinal: Gastrointestinal: Denies abdominal pain, Denies melena, Denies hematochezia, Denies diarrhea, Denies nausea, Denies vomiting and Denies hematemesis Musculoskeletal: Musculoskeletal: Denies abnormal gait, Denies deformity, Denies joint swelling, Denies limited range of motion, Denies neck pain and Denies numbness Neurologic: Denies Abnormal speech present, Denies abnormal gait, Denies confusion, Denies dizziness, Denies headache(s), Denies focal weakness, Denies loss of vision, Denies numbness, Denies Other visual disturbances, Denies Sensory deficit (Neuro) and Denies weakness Psychiatric: Psychiatric: Denies confusion, Denies depression, Denies auditory hallucinations, Denies homicidal ideation and Denies suicidal ideation Endocrine: Endocrine: Denies cold intolerance, Denies excessive sweating, Denies fatigue, Denies heat intolerance and Denies palpitations Hematologic/Lymphatic: Hematologic/Lymphatic: Denies easy bleeding and Denies easy bruising Allergic/Immunologic: Allergic/Immunologic: Denies lip swelling, Denies throat swelling and Denies tongue swelling PMFSH Past Medical History Medical History (Updated 09/12/20 @ 04:31 by Yuri Mcclendon MD) Back pain with history of spinal surgery (Unknown) Essential hypertension (Unknown) Hyperlipidemia (Unknown) Family History Family History Mother Asthma Depression Hypertension Family history of arthritis Mother Depression Father Depression Hypertension Diabetes mellitus Family history of arthritis Family history of hearing loss Family history of mental disorder Grandparent Asthma Family history of hearing loss Sibling Asthma Family history of attention deficit hyperactivity disorder (ADHD) Grandparent Hypertension Family history of arthritis Family history of cardiovascular disease Family history of hearing loss Other Cerebrovascular accident Diabetes miladys
--- NOTE | 2020-09-12 04:36 | PC.NURSE ---
EDMD presented to bedside.
[2020-09-12 04:46] LABS: Anion Gap 5 mmol/L (8-16); Blood Urea Nitrogen 13 mg/dL (9-20); Calcium 9.3 mg/dL (8.4-10.2); Carbon Dioxide 29 mmol/L (22-30); Chloride 104 mmol/L (98-107); Estimated Glomerular Filt Rate > 60; Glucose 102 mg/dL (75-110); Potassium 3.2 mmol/L (3.4-5.0); Sodium 138 mmol/L (137-145)
[2020-09-12 04:47] LABS: Troponin I < 0.012 ng/mL (0.000-0.034)
[2020-09-12 04:59] LABS: Basophils Percent Auto 0.4 % (0.2-1.2); Eosinophils Absolute Auto 0.3 K/mm3 (0-0.3); Eosinophils Percent Auto 2.7 % (0-4.4); Hematocrit 39.2 % (42.0-52.0); Hemoglobin 13.8 g/dL (14.0-18.0); Immature Granulocyte Absolute 0.03 K/mm3 (0.00-0.031); Immature Granulocyte Percent A 0.3 % (0-0.5); Lymphocytes Absolute Auto 2.58 K/mm3 (0.9-3.2); Lymphocytes Percent Auto 27.5 % (18.3-44.2); Mean Corpuscular HGB Conc 35.2 g/dl (32-36); Mean Corpuscular Hemoglobin 28.5 pg (26-34); Mean Corpuscular Volume 80.8 fl (80-100); Mean Platelet Volume 9.4 fl (7.4-10.4); Monocytes Absolute Auto 0.6 K/mm3 (0.1-0.6); Monocytes Percent Auto 6.3 % (2.6-8.5); Neutrophils Absolute Auto 5.9 K/mm3 (1.3-6.7); Neutrophils Percent Auto 62.8 % (45.5-73.1); Platelet Count Result 198 k/mm3 (150-375); Red Blood Count 4.85 M/mm3 (4.6-6.20); Red Cell Distribution Width 12.5 % (11.5-14.5); White Blood Count 9.4 K/mm3 (4.5-10.0)
[2020-09-12 05:01] LABS: INR 0.9; Partial Thromboplastin Time 25.3 SECONDS (22.3-36.8); Prothrombin Time 12.7 Seconds (11.1-14.7)
[2020-09-12] MEDS: POTASSIUM CHLORIDE 20 MEQ PACKET (FOR LIQUID) 40 MEQ PO (05:04)
[2020-09-12] MEDS: NITROGLYCERIN OINTMENT 1 INCH DOSE TRANSDERM (05:04)
--- NOTE | 2020-09-12 05:04 | PC.NURSE ---
Meds administered. Nitro paste applied to left upper back.
--- NOTE | 2020-09-12 05:27 | PC.NURSE ---
Pt resting on cart with call button and personal items within reach. Continues to rate chest pain 4/10. Remains alert and oriented x4, vitals are stable and pt in no obvious distress at this time. No complaints or concerns voiced at this time. Pt aware of and updated on poc and all questions addressed. Pt advised to press call button for assistance.
--- NOTE | 2020-09-12 05:34 | PC.NURSE ---
Report given to receiving nurse, Zach. Rowe to send pt to floor.
--- NOTE | 2020-09-12 05:49 | PC.NURSE ---
This patient, Eric Brooks, was admitted to IMU Room 205-02. Patient/family oriented to hospital policies and general routines including ID bracelet, bed and alarms, visiting hours, pain management, procedures, bathroom and other care routines, personal items, smoking policy, room service/diet, and visiting hours. Information on how to activate the Rapid Response Team has been discussed. Patient/Family are encouraged to report perceived risks to care and to ask questions if they do not understand what they are told or what they should do.
[2020-09-12 07:28] LABS: Troponin I < 0.012 ng/mL (0.000-0.034)
--- NOTE | 2020-09-12 08:48 | PM.CNCAR ---
Assessment and Plan Additional Plan 40-year-old gentleman with hypertension but otherwise no obvious coronary risk factors. He has a 3 week history of constant unremitting chest pain in the face of which his electrocardiogram a and troponin level showed no evidence of acute coronary syndrome. It seems therefore based on this clinical assessment at the chance of this symptom being mediated by myocardial ischemia is managing the small and as such I do not recommend launching an ischemic workup to at this time. Rory Fernandez MD [facility] History of Present Illness History of Present Illness Consult date/time: Date of service: 09/12/20 08:48 Consult reason: chest pain Reason For Visit: CHEST PAIN Narrative: This is a 40-year-old man I am seeing at the request of the hospitalist this morning to consult regarding chest pain. The patient has no prior history of any cardiac problems that he has been made aware of. He does have longstanding hypertension and a history of an anxiety disorder. The patient states that he has been having chest pain in a constant unremitting fashion for 3 weeks. The symptom does wax and wane in severity based on if he is stressed or anxious about something but has not Aleve been free of this symptom for several weeks. He states that when the pain is more significant his blood pressure tends to be elevated. Yesterday at home he measured his diastolic blood pressures of over 100 and he states that he was always told by his doctor that of his diastolic pressure was that high that that represented an emergency and that he needed to come to the hospital for further evaluation. In the emergency room his electrocardiogram was normal. He has been admitted to the IMU for further evaluation and management his troponin levels are also normal. Upon seeing him in the room me appears to be quite comfortable resting supine in bed and does not offer any other complaints. He denies any orthopnea PND or edema palpitations or syncope. His 12 lead electrocardiogram is an unremarkable tracing. He states that his baseline anxiety disorder has worsened recently because he is having a some marital stress issues. He does not have a history of hypercholesterolemia or diabetes and there is no family history of premature ischemic heart disease. Review of Systems Constitutional: Constitutional: Reports no additional constitutional complaints Eyes: Eyes: Reports no additional eye complaints ENT: Reports system reviewed and no additional complaints, except as documented Cardiovascular: Cardiovascular: Reports as per HPI Respiratory: Respiratory: Reports no additional respiratory complaints Gastrointestinal: Gastrointestinal: Reports no additional gastrointestinal complaints Musculoskeletal: Musculoskeletal: Reports no additional musculoskeletal complaints and Reports back pain Neurologic: Reports system reviewed and no additional complaints, except as documented Psychiatric: Psychiatric: Reports as per HPI and Reports anxiety Endocrine: Endocrine: Reports no additional endocrine complaints Hematologic/Lymphatic: Hematologic/Lymphatic: Reports no additional hematologic/lymphatic complaints Allergic/Immunologic: Allergic/Immunologic: Reports no additional allergic/immunologic complaints PMFSH Past Medical History Medical History (Updated 09/12/20 @ 04:31 by Yuri Mcclendon MD) Back pain with history of spinal surgery (Unknown) Essential hypertension (Unknown) Hyperlipidemia (Unknown) Family History Family History Mother Asthma Depression Hypertension Family history of arthritis Mother Depression Father Depression Hypertension Diabetes mellitus Family history of arthritis Family history of hearing loss Family history of mental disorder Grandparent Asthma Family history of hearing loss Sibling Asthma Family history of attention deficit hyperactivity
--- NOTE | 2020-09-12 10:38 | PM.SD2 ---
Same Day Admit/Disch: HPI History of Present Illness Chief complaint: CHEST PAIN Narrative: Eric Brooks is a 40 year old male presented emergency depart with complaint of left-sided chest for 2 weeks however 2 hours prior to coming into emergency depart patient pain was severe he was reading 12/25 emergency depart patient was given nitro past and aspirin which did improve his chest pain, patient had a 3 sets of cardiac enzymes which which were negative similarly were no acute changes on EKG patient was seen by Cardiology does not suspect the patient has acute coronary syndrome and did not recommend any ischemic workup, upon arrival patient also had elevated blood pressures systolic in 200 which did improve with better past, blood pressure is reasonably well controlled. [facility] Past Medical History Medical History (Updated 09/12/20 @ 04:31 by Yuri Mcclendon MD) Back pain with history of spinal surgery (Unknown) Essential hypertension (Unknown) Hyperlipidemia (Unknown) Family History Family History Mother Asthma Depression Hypertension Family history of arthritis Mother Depression Father Depression Hypertension Diabetes mellitus Family history of arthritis Family history of hearing loss Family history of mental disorder Grandparent Asthma Family history of hearing loss Sibling Asthma Family history of attention deficit hyperactivity disorder (ADHD) Grandparent Hypertension Family history of arthritis Family history of cardiovascular disease Family history of hearing loss Other Cerebrovascular accident Diabetes mellitus Family history of alcoholism Family history of malignant neoplasm Other Family history of migraine headaches Family history of obesity Family history of seizure disorder Social History Social History Smoking status: Never smoker Second hand tobacco smoke exposure: Yes Alcohol intake: never Substance use: never Substance use type: marijuana Other substance usage details: Daily usage Gender identity (if verbalized by the patient): Male Spiritual care concerns: No Same Day Admit/Disch: Med Pre-admit Medications Home Medications Medication Instructions Recorded Confirmed Type duloxetine 60 mg capsule,delayed 60 mg PO DAILY #90 cap 03/29/20 09/12/20 Rx release potassium chloride 20 mEq 20 meq PO DAILY #90 tablet 06/29/20 09/12/20 Rx tablet,extended release trazodone 50 mg tablet 50 mg PO QHS #30 tablet 07/19/20 09/12/20 Rx amlodipine 10 mg tablet 10 mg PO DAILY #90 tablet 08/27/20 09/12/20 Rx acetaminophen 500 mg capsule 500 mg PO Q6H PRN 09/04/20 09/12/20 History losartan 100 mg tablet 100 mg PO DAILY #90 tablet 09/04/20 09/12/20 Rx omeprazole 40 mg capsule,delayed 40 mg PO DAILY #90 cap 09/04/20 09/12/20 Rx release simethicone 125 mg capsule 125 mg PO DAILY PRN 09/04/20 09/12/20 History hydroxyzine HCl 25 mg PO TID PRN 09/12/20 09/12/20 History Exam Narrative: Exam Narrative: Patient is comfortable, NAD HEENT: eyes are clear and none icteric LUNGS:CTA HEART: RR S1S2 ABD: BS+, Soft and nontender Lower extremities: no edema SKIN: nonjaundiced Neuro: grossly intact. DS: Data Data Completed and Pending Labs on day of discharge: Labs from last 24 hours 09/12/20 09/12/20 09/12/20 10:21 06:52 04:00 WBC RBC Hgb Hct MCV MCH MCHC RDW Plt Count MPV Immature Gran % (Auto) Neut % (Auto) Lymph % (Auto) [place] % (Auto) Eos % (Auto) Baso % (Auto) Lymph # (Auto) [place] # (Auto) Eos # (Auto) Baso # (Auto) Abs Immat Gran (auto) Absolute Neuts (auto) Absolute Nucleated RBC Nucleated RBC % PT INR APTT Sodium 138 Potassium 3.2 L Chloride 104 Carbon Dioxide 29 Anion Gap 5 L BUN 13 Creatinine 0.90 Estim Creat Cl
[2020-09-12 10:55] LABS: Troponin I < 0.012 ng/mL (0.000-0.034)
== END 2020-09-12 11:19 | disposition home or self-care (01) ==
LOC: ANHED 04:59 → ANHIMU 05:12
PROVIDERS: Admitting Provider Family Medicine; Emergency Provider Emergency Medicine; PCP Internal Medicine; Visit Provider Family Medicine
DX: R07.9 Chest pain, unspecified (principal); I10 Essential (primary) hypertension
CPT/HCPCS: 36415; 71046; 80048; 84484; 85025; 85610; 85730; 93005; 99285; A9270; G0378

== ENCOUNTER 2020-09-18 17:47 | Emergency (ER) | payer OTHER, SELFPAY ==
--- NOTE | ~2020-09-18 | CT_ITS ---
EXAMINATION: CT thoracic lumbar wo con DATE: 09/18/2020 20:09 INDICATION: Mid back pain. TECHNIQUE: Computed tomography (CT) of the thoracic and lumbar spine was performed without intravenou s contrast. Automated exposure control and iterative reconstruction technique were employed. The dose -length product was 2254.71 mGy-cm. COMPARISON: None FINDINGS: CT THORACIC SPINE: Calcified pulmonary nodules and calcified right hilar lymph nodes are consistent w ith old granulomatous disease. There is 11 degrees levoscoliosis of upper thoracic spine. Vertebral b diana heights are normal. There are benign bone islands in T1 and T7 vertebral bodies. There is mildly decreased disc height at multiple levels in mid and lower thoracic spine. There is multilevel mild fa cet joint osteoarthritis. At T9-T10, there is a central extrusion with mild central canal stenosis. T here is mild neural foraminal stenosis on the left at T2-T3 and T3-T4. There is a 2 mm stone in left kidney. CT LUMBAR SPINE: There are changes of cholecystectomy. There is 4 degrees dextrocurvature of lumbar s pine. Vertebral body heights are normal. There is a hemangioma in L1 vertebral body. There is a benig n bone island in right L2 transverse process. There are changes of disc replacement at L4-L5. There a re changes of anterior and posterior fusion procedures at L5-S1 with interbody devices and pedicle sc rews. Intervertebral disc heights are normal. The following disc levels are specifically discussed: L1-L2: The disc is mildly bulging. There is no facet joint osteoarthritis. There is no neural foramin al stenosis. There is mild central canal stenosis. L2-L3: The disc does not extend beyond the endplate margin. There is mild bilateral facet joint osteo arthritis. There is no neural foraminal stenosis. There is no central canal stenosis. L3-L4: The disc is mildly bulging. There is mild bilateral facet joint osteoarthritis. There is mild left neural foraminal stenosis. There is no central canal stenosis. L4-L5: There is mild bilateral facet joint osteoarthritis. There is mild right neural foraminal steno sis. There is no central canal stenosis. L5-S1: There is moderate facet joint hypertrophy. There is no neural foraminal stenosis. There is no central canal stenosis. IMPRESSION: 1. Mild thoracic and lumbar spondylosis. 2. Anterior and posterior fusion procedures at L5-S1. Disc replacement at L4-L5. Reviewed, dictated and finalized at location A. IMPRESSION: 1. Mild thoracic and lumbar spondylosis. 2. Anterior and posterior fusion procedures at L5-S1. Disc replacement at L4-L5 .
[2020-09-18 17:54] VITALS: BP 128/84; PULSE 72; RESP 22; TEMP 36.6; O2SAT 97
[2020-09-18] MEDS: KETOROLAC 30 MG/ML VIAL (*BKC) IV PUSH (18:44)
[2020-09-18] MEDS: diazePAM INJ (*CRX) 10 MG/2 ML SYRINGE 5 MG IV PUSH (18:44)
--- NOTE | 2020-09-18 18:59 | PC.NURSE ---
pt informed that urine specimen needed. pt given urinal
[2020-09-18 19:15] VITALS: BP 124/73; PULSE 58; RESP 18; TEMP 36.9; O2SAT 99
[2020-09-18 19:15] LABS: Basophils Percent Auto 0.4 % (0.2-1.2); Eosinophils Absolute Auto 0.1 K/mm3 (0-0.3); Eosinophils Percent Auto 1.4 % (0-4.4); Hematocrit 40.9 % (42.0-52.0); Hemoglobin 13.8 g/dL (14.0-18.0); Immature Granulocyte Absolute 0.02 K/mm3 (0.00-0.031); Immature Granulocyte Percent A 0.2 % (0-0.5); Lymphocytes Percent Auto 22.4 % (18.3-44.2); Mean Corpuscular HGB Conc 33.7 g/dl (32-36); Mean Corpuscular Hemoglobin 28.2 pg (26-34); Mean Corpuscular Volume 83.5 fl (80-100); Mean Platelet Volume 9.3 fl (7.4-10.4); Monocytes Absolute Auto 0.5 K/mm3 (0.1-0.6); Neutrophils Absolute Auto 5.6 K/mm3 (1.3-6.7); Neutrophils Percent Auto 69.6 % (45.5-73.1); Platelet Count Result 168 k/mm3 (150-375); Red Cell Distribution Width 12.1 % (11.5-14.5)
--- NOTE | 2020-09-18 19:18 | PC.NURSE ---
Introduced to patient, bedside report received from off going RN. Patient given a mask and educated on proper wear and use of mask due to current pandemic conditions.
[2020-09-18 19:22] LABS: Add Urine Microscopic? YES; Appearance Urine Cloudy (Clear); Bacteria Urine Trace /hpf; Bilirubin Urine Negative (Negative); Blood Urine Negative (Negative); Calcium Oxalate Crystals Urine Present /hpf; Color Urine Amber (Yellow); Glucose Urine UA Negative (Negative); Ketones Urine Negative (Negative); Leukocyte Esterase Ur Negative LEU/UL (Negative); Mucus Urine Heavy /lpf; Nitrate Urine Negative (Negative); Protein Urine 2+ mg/dL (Negative); Specific Grav Ur 1.028 (1.001-1.035); Squamous Epithelial Cell Urine Rare /hpf (Few); WBC Urine 0-3 /hpf
[2020-09-18 19:29] LABS: Alanine Aminotransferase 78 U/L (4-50); Albumin Level 4.1 g/dL (3.5-5.1); Alkaline Phosphatase 67 U/L (38-126); Anion Gap 4 mmol/L (8-16); Aspartate Amino Transferase 28 U/L (17-59); Bilirubin,Total 0.5 mg/dL (0.2-1.3); Blood Urea Nitrogen 16 mg/dL (9-20); Calcium 9.3 mg/dL (8.4-10.2); Carbon Dioxide 30 mmol/L (22-30); Chloride 106 mmol/L (98-107); Estimated CRCL calculation 106 ml/min; Estimated Glomerular Filt Rate > 60; Glucose 89 mg/dL (75-110); Potassium 3.6 mmol/L (3.4-5.0); Sodium 140 mmol/L (137-145)
--- NOTE | 2020-09-18 19:37 | ED.BACK ---
HPI - Back Pain/Injury General Chief Complaint: Back Pain/Injury Stated Complaint: BACK PAIN Time Seen by Provider: 09/18/20 17:59 Source: patient, RN notes reviewed and old records reviewed Mode of arrival: ambulatory Limitations: no limitations History of Present Illness HPI Narrative: This is a 40 year old male with history chronic back pain who presents for an exacerbation of his pain. He states he has pain daily but he developed severe pain today. His pain is located in his mid back. He has severe sharp pain whenever he tries to move. He has not take any medication for his pain today. He states he only smokes medical marijuana for his pain. He denies any fever, abdominal pain, nausea, vomiting, leg weakness or numbness. He denies any injury. Related Data Home Medications Medication Instructions Recorded Confirmed acetaminophen 500 mg capsule 500 mg PO Q6H PRN 09/04/20 09/12/20 simethicone 125 mg capsule 125 mg PO DAILY PRN 09/04/20 09/12/20 hydroxyzine HCl 25 mg PO TID PRN 09/12/20 09/12/20 Allergies Allergy/AdvReac Type Severity Reaction Status Date / Time No Known Allergies Allergy Verified 09/18/20 18:01 Review of Systems Review of Systems: All systems reviewed & are unremarkable except as noted in HPI and below Constitutional: Constitutional: Denies chills and Denies fever(s) Respiratory: Respiratory: Denies cough and Denies dyspnea Gastrointestinal: Gastrointestinal: Denies abdominal pain, Denies diarrhea, Denies nausea and Denies vomiting Genitourinary: Genitourinary: Denies hematuria, Denies dysuria and Denies urinary frequency Musculoskeletal: Musculoskeletal: Reports back pain and Reports muscle cramps Neurologic: Denies focal weakness, Denies numbness and Denies weakness PMFSH Past Medical History Medical History (Updated 09/18/20 @ 21:03 by Lesia Kaur MD) Back pain with history of spinal surgery (Unknown) Essential hypertension (Unknown) Hyperlipidemia (Unknown) Family History Family History Mother Asthma Depression Hypertension Family history of arthritis Mother Depression Father Depression Hypertension Diabetes mellitus Family history of arthritis Family history of hearing loss Family history of mental disorder Grandparent Asthma Family history of hearing loss Sibling Asthma Family history of attention deficit hyperactivity disorder (ADHD) Grandparent Hypertension Family history of arthritis Family history of cardiovascular disease Family history of hearing loss Other Cerebrovascular accident Diabetes mellitus Family history of alcoholism Family history of malignant neoplasm Other Family history of migraine headaches Family history of obesity Family history of seizure disorder Social History Social History Smoking status: Never smoker Second hand tobacco smoke exposure: Yes Alcohol intake: never Substance use: never Substance use type: marijuana Other substance usage details: Daily usage Gender identity (if verbalized by the patient): Male Spiritual care concerns: No Exam Const: General: alert Orientation/consciousness: patient oriented x3 Other: patient screaming with movement Eyes: EOM: EOMs intact bilaterally Resp: Effort & Inspection: normal respiratory effort and no retractions Auscultation: clear to auscultation bilaterally Cardio: Rate: regular rate Rhythm: regular rhythm Heart sounds: no murmurs GI: GI Palp: Yes Soft to palpation, No Tenderness to palpation present (GI) and No Guarding due to palpation present (GI) Auscultation: normal bowel sounds Back/Spine/Pelvis: Back: No mass, No erythema and No warmth Thoracic/Lumbar Spine: paraspinal muscle tenderness and thoraco-lumbar ROM limited Skin: General skin exam: normal color Rashes: no rashes Neuro: General: patient
[2020-09-18] MEDS: HYDROmorphone HCL INJ (*CRX) 1 MG/ML SYR IV PUSH (19:51)
[2020-09-18 20:26] VITALS: BP 119/66; PULSE 66; RESP 18; TEMP 36.8; O2SAT 98
[2020-09-18] MEDS: BELLADONNA ALK/PHENOB ELIX 10 ML, MAG HYDROX/ALUMINUM HYD/SIMETH 30 ML, LIDOCAINE HCL 2... PO (20:33)
--- NOTE | 2020-09-18 20:35 | PC.NURSE ---
Patient reported heartburn and gas pain. EDP notified, order obtained, and medication provided.
[2020-09-18 20:50] VITALS: BP 127/70; PULSE 60; RESP 20; TEMP 36.3; O2SAT 99
== END 2020-09-18 21:15 | disposition home or self-care (01) ==
PROVIDERS: Emergency Provider General Practice; PCP Internal Medicine
DX: M54.5 Low back pain (principal); G89.29 Other chronic pain; I10 Essential (primary) hypertension; E78.5 Hyperlipidemia, unspecified; M47.814 Spondylosis without myelopathy or radiculopathy, thoracic region; M47.816 Spondylosis without myelopathy or radiculopathy, lumbar region; Z98.1 Arthrodesis status
CPT/HCPCS: 36415; 72128; 72131; 80053; 81001; 85025; 96374; 96375; 99284; A9270; J1170; J1885; J3360

== ENCOUNTER 2021-06-27 18:58 | Emergency (ER) | payer OTHER, SELFPAY ==
[2021-06-27] VITALS (16 sets, daily range): BP systolic 114–137; BP diastolic 79–92; PULSE 49–63; RESP 10–23; TEMP 36.2; O2SAT 94–100
--- NOTE | ~2021-06-27 | XR_ITS ---
EXAMINATION: XR chest 1V portable DATE: 06/27/2021 19:56 INDICATION: Generalized chest pain. Dyspnea. TECHNIQUE: A single frontal view of the chest was obtained. COMPARISON: Chest 2 views 09/12/2020, thoracic spine CT 09/18/20 FINDINGS: Calcified pulmonary nodules are consistent with old granulomatous disease. No pleural effus ion or pneumothorax. The heart size is normal. IMPRESSION: 1. No acute cardiopulmonary disease. Reviewed, dictated and finalized at location E. 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
--- NOTE | 2021-06-27 19:37 | ED.GENADULT ---
HPI - General Adult General Chief complaint: Chest Pain Stated complaint: chest pain, dizzy Time Seen by Provider: 06/27/21 19:13 Source: patient Mode of arrival: ambulatory Limitations: no limitations History of Present Illness HPI narrative: Patient is a 41-year-old male complaining of shortness of breath, chest pain, nausea, fatigue, lack of appetite, cough, nasal congestion, body aches, fever and chills x4 days. Patient states that he is vaccinated from COVID and the flu. Patient denies any abdominal pain, vomiting, diarrhea or rash. Related Data Home Medications Medication Instructions Recorded Confirmed acetaminophen 500 mg capsule 500 mg PO Q6H PRN 09/04/20 02/21/21 simethicone 125 mg capsule 125 mg PO DAILY PRN 09/04/20 02/21/21 hydroxyzine HCl 25 mg PO TID PRN 09/12/20 02/21/21 Allergies Allergy/AdvReac Type Severity Reaction Status Date / Time No Known Allergies Allergy Verified 02/21/21 12:51 Review of Systems Review of Systems: All systems reviewed & are unremarkable except as noted in HPI and below Constitutional: Constitutional: Denies excessive sweating, Denies headache(s), Denies lethargy, Denies weakness and Denies weight loss Eyes: Eyes: Denies blurry vision, Denies change in vision and Denies loss of vision ENT: Denies dizziness, Denies ear discharge, Denies headache(s), Denies lip swelling, Denies epistaxis, Denies nasal congestion, Denies neck pain, Denies throat swelling and Denies tongue swelling Cardiovascular: Cardiovascular: Denies diaphoresis, Denies rapid heart rate, Denies edema, Denies irregular heart rhythm, Denies lightheadedness and Denies palpitations Respiratory: Respiratory: Denies chest congestion and Denies hemoptysis Gastrointestinal: Gastrointestinal: Denies abdominal pain, Denies melena, Denies hematochezia, Denies diarrhea, Denies nausea, Denies vomiting and Denies hematemesis Musculoskeletal: Musculoskeletal: Denies abnormal gait, Denies deformity, Denies joint swelling, Denies limited range of motion, Denies neck pain and Denies numbness Neurologic: Denies Abnormal speech present, Denies abnormal gait, Denies confusion, Denies dizziness, Denies headache(s), Denies focal weakness, Denies loss of vision, Denies numbness, Denies Other visual disturbances, Denies Sensory deficit (Neuro) and Denies weakness Psychiatric: Psychiatric: Denies confusion, Denies depression, Denies auditory hallucinations, Denies homicidal ideation and Denies suicidal ideation Endocrine: Endocrine: Denies cold intolerance, Denies excessive sweating, Denies fatigue, Denies heat intolerance and Denies palpitations Hematologic/Lymphatic: Hematologic/Lymphatic: Denies easy bleeding and Denies easy bruising Allergic/Immunologic: Allergic/Immunologic: Denies lip swelling, Denies throat swelling and Denies tongue swelling PMFSH Past Medical History Medical History (Updated 06/27/21 @ 22:05 by Yuri Mcclendon MD) Back pain with history of spinal surgery (Unknown) Essential hypertension (Unknown) Hyperlipidemia (Unknown) Family History Family History Mother Asthma Depression Hypertension Family history of arthritis Mother Depression Father Depression Hypertension Diabetes mellitus Family history of arthritis Family history of hearing loss Family history of mental disorder Grandparent Asthma Family history of hearing loss Sibling Asthma Family history of attention deficit hyperactivity disorder (ADHD) Grandparent Hypertension Family history of arthritis Family history of cardiovascular disease Family history of hearing loss Other Cerebrovascular accident Diabetes mellitus Family history of alcoholism Family history of malignant neoplasm Other Family history of migraine headaches Family history of obesity Family history of seizure disorder Social History Social History (Reviewed 06/27/21 @ 19:39 by Carly
[2021-06-27 20:16] LABS: Lipase 78 U/L (23-300)
[2021-06-27 20:18] LABS: Prothrombin Time 12.6 Seconds (11.1-14.7)
[2021-06-27 20:19] LABS: Partial Thromboplastin Time 28.6 SECONDS (22.3-36.8)
[2021-06-27 20:26] LABS: Basophils Percent Auto 0.5 % (0.2-1.2); Eosinophils Absolute Auto 0.1 K/mm3 (0-0.3); Eosinophils Percent Auto 0.8 % (0-4.4); Hematocrit 42.5 % (42.0-52.0); Hemoglobin 14.6 g/dL (14.0-18.0); Immature Granulocyte Absolute 0.01 K/mm3 (0.00-0.031); Immature Granulocyte Percent A 0.2 % (0-0.5); Lymphocytes Absolute Auto 1.95 K/mm3 (0.9-3.2); Lymphocytes Percent Auto 30.2 % (18.3-44.2); Mean Corpuscular HGB Conc 34.4 g/dl (32-36); Mean Corpuscular Hemoglobin 28.3 pg (26-34); Mean Corpuscular Volume 82.5 fl (80-100); Monocytes Absolute Auto 0.3 K/mm3 (0.1-0.6); Monocytes Percent Auto 5.3 % (2.6-8.5); Neutrophils Absolute Auto 4.1 K/mm3 (1.3-6.7); Platelet Count Result 194 k/mm3 (150-375); Red Blood Count 5.15 M/mm3 (4.6-6.20); Red Cell Distribution Width 12.8 % (11.5-14.5); White Blood Count 6.5 K/mm3 (4.5-10.0)
[2021-06-27 20:29] LABS: Alanine Aminotransferase 86 U/L (4-50); Albumin Level 4.3 g/dL (3.5-5.1); Alkaline Phosphatase 66 U/L (38-126); Anion Gap 7 mmol/L (8-16); Aspartate Amino Transferase 32 U/L (17-59); Bilirubin,Total 0.6 mg/dL (0.2-1.3); Blood Urea Nitrogen 8 mg/dL (9-20); Carbon Dioxide 27 mmol/L (22-30); Chloride 104 mmol/L (98-107); Estimated CRCL calculation 89 ml/min; Estimated Glomerular Filt Rate > 60; Glucose 90 mg/dL (65-110); Potassium 3.3 mmol/L (3.4-5.0); Sodium 138 mmol/L (137-145)
[2021-06-27 20:29] LABS: Troponin I < 0.012 ng/mL (0.000-0.034)
[2021-06-27 20:37] LABS: NT Pro B Type Natriuretic Pept 22 pg/mL (5-100)
--- NOTE | 2021-06-27 22:00 | PC.NURSE ---
updated on poc, awaiting covid test result. discussed lab results and imaging with the pt
--- NOTE | 2021-06-27 22:20 | ECG_ITS ---
Measurements Intervals [place] Rate: 58 P: 26 OR: 195 QRS: -8 QRSD: 99 T: 9 QT: 402 QTc: 395 Interpretive Statements SINUS BRADYCARDIA MINIMAL Q WAVES- HIGH LATERAL LEADS BORDERLINE ECG Electronically Signed On 06-27-2021 20:32:08 FEED MILL MANAGER by Bert Ny D.O.
--- NOTE | 2021-06-27 22:47 | PC.NURSE ---
unwitnessed elopement. credit charge authorizer on way to speak with pt regarding having 3 hr troponin done or leaving ama. room empty and iv saline lock found on floor. saline lock removed intact by pt.
--- NOTE | 2021-06-27 22:49 | PC.NURSE ---
pt to be dc, pt not in room. IV found n floor next to bed. admission discharge rn aware
[2021-06-28 00:43] LABS: SARS-CoV-2 RNA PCR Negative
== END 2021-06-27 22:51 | disposition left against medical advice (07) ==
PROVIDERS: Emergency Provider Emergency Medicine; PCP Internal Medicine
DX: B34.9 Viral infection, unspecified (principal); Z20.822 Contact with and (suspected) exposure to COVID-19; R00.1 Bradycardia, unspecified; I10 Essential (primary) hypertension; R06.02 Shortness of breath; R07.9 Chest pain, unspecified; Z87.891 Personal history of nicotine dependence; F12.90 Cannabis use, unspecified, uncomplicated
CPT/HCPCS: 36415; 71045; 80053; 83690; 83880; 84484; 85025; 85610; 85730; 87804; 93005; 99283; C9803; U0003; U0005

== ENCOUNTER 2022-02-26 19:08 | Emergency (ER) | payer OTHER, SELFPAY ==
[2022-02-26] VITALS (14 sets, daily range): BP systolic 112–137; BP diastolic 72–90; PULSE 74; RESP 16; TEMP 36.2; O2SAT 95–100
--- NOTE | ~2022-02-26 | CT_ITS ---
EXAMINATION: CT thoracic lumbar w con DATE: 02/26/2022 21:54 INDICATION: severe, lower back pain . TECHNIQUE: Computed tomography (CT) of the thoracic and lumbar spine was performed without intravenou s contrast. The dose-length product was 2178.91 mGy-cm. COMPARISON: None FINDINGS: THORACIC SPINE: Vertebral body alignment intact. Vertebral body heights preserved. Mild multilevel degenerative disc change. No traumatic malalignment or fracture. Dependent atelectasis. Bone island in the T1 vertebral body. Schmorl's nodes at T10-11. Bridging anterior osteophytes in the lower thoracic spine. LUMBAR SPINE: Posterior fusion at L5-S1 without hardware fracture or lucency. Interbody devices at L4-5 and L5-S1, in good position. 5 nonrib-bearing lumbar-type vertebral bodies. Pedicles intact. Normal vertebral clarence dy alignment. Vertebral body heights preserved. Mild multilevel disc space narrowing and marginal ost eophytosis. Osseous fusion of the right L5-S1 facet. 1.6 cm right upper pole lesion of indeterminate density (28 HU). 7 mm right midpole renal hypodensity, too small to characterize. IMPRESSION: 1. No acute fracture or traumatic malalignment in the thoracic or lumbar spine. 2. No CT evidence of osteomyelitis/discitis. No abnormal enhancing lesions detected in the spine. 3. 1.6 cm indeterminate right upper pole renal mass. Recommend nonemergent, outpatient MRI of the kid neys without and with contrast for further evaluation. Reviewed, dictated and finalized at location K. IMPRESSION: 1. No acute fracture or traumatic malalignment in the thoracic or lumbar spine. 2. No CT evidence of osteomyelitis/discitis. No abnormal enhancing lesions dete cted in the spine. 3. 1.6 cm indeterminate right upper pole renal mass. Recommend nonemergent, out patient MRI of the kidneys without and with contrast for further evaluation.
--- NOTE | ~2022-02-26 | CT_ITS ---
EXAMINATION: CT cervical spine w con DATE: 02/26/2022 21:53 INDICATION: back pain, cervical spine pain TECHNIQUE: Computed tomography (CT) of the cervical spine was performed with 100 mL Omnipaque 350 int ravenous contrast (split 50-50 between the C-spine and subsequent T and L-spine scans). Automated exp osure control and iterative reconstruction technique were employed. The dose-length product was 494.7 5 mGy-cm. COMPARISON: None FINDINGS: Vertebral Body Alignment: Intact. Craniocervical and atlantoaxial alignment: Mild degenerative change. Alignment intact. Osseous structures/fracture: No evidence of a lytic or blastic process in the visualized spine. No e vidence of acute fracture. Cervical soft tissues: The paraspinal soft tissues planes are maintained. No abnormal enhancement. Degenerative changes: Multilevel degenerative disc disease, moderate at C5-6 and mild at C6-7. IMPRESSION: No acute fracture or traumatic malalignment in the cervical spine. No CT evidence of osteomyelitis/di scitis. No abnormal enhancing lesions detected in the spine. Reviewed, dictated and finalized at location K. IMPRESSION: No acute fracture or traumatic malalignment in the cervical spine. No CT eviden ce of osteomyelitis/discitis. No abnormal enhancing lesions detected in the spi ne.
--- NOTE | 2022-02-26 20:14 | ED.BACK ---
HPI - Back Pain/Injury General Chief Complaint: Back Pain/Injury Stated Complaint: back and neck pain Time Seen by Provider: 02/26/22 20:14 Source: patient Mode of arrival: ambulatory Limitations: no limitations History of Present Illness HPI Narrative: Patient is a 41-year-old male with a history of hypertension, hyperlipidemia, chronic back pain, spinal fusion, presenting to the emergency department for evaluation of back pain. Patient reports severe back pain of his upper neck, middle back, lower back over the past week. Patient reports spasm, sharp pain with any movement. He has difficulty ambulating secondary to the pain. Patient states that he does not take any opiate medications, has used medical marijuana as well as anti-inflammatory medications to help alleviate his pain. Per chart review, patient does have a history of this in September for similar. CT scan reviewed at that point he has a history of lumbar anterior and posterior spinal fusion, disc replacement L4-L5. Patient denies fever, chills, nausea or vomiting. Denies chest pain or shortness of breath. Patient denies difficulty with bowel or bladder function. No urinary incontinence or bowel incontinence. Patient denies paresthesias or weakness. He has been ambulatory. He denies recent fall or injury. Patient states that over 20 years ago he had a fall from 2 stories which is what caused his chronic pain and injuries. Related Data Home Medications Medication Instructions Recorded Confirmed acetaminophen 500 mg capsule 500 mg PO Q6H PRN Pain 1-3 09/04/20 08/29/21 simethicone 125 mg capsule (Gas 125 mg PO DAILY PRN Abdominal 09/04/20 08/29/21 Relief (simethicone)) Discomfort Allergies Allergy/AdvReac Type Severity Reaction Status Date / Time No Known Allergies Allergy Verified 02/26/22 20:12 Review of Systems Review of Systems: CONSTITUTIONAL: Denies fever, chills, or sweats. EYES: Denies visual changes, redness, or discharge. ENT: Denies rhinorrhea, congestion, sore throat, or otalgia. CARDIOVASCULAR: Denies chest pain, palpitations, or edema. RESPIRATORY: Denies cough or dyspnea. GASTROINTESTINAL: Denies abdominal pain, nausea, vomiting, or diarrhea. GENITOURINARY: Denies dysuria or hematuria. SKIN: Denies rash or itching. MUSCULOSKELETAL: Reports neck, midline, lower back pain NEUROLOGIC: Denies headache, numbness, or weakness. PMFSH Past Medical History Medical History (Updated 02/26/22 @ 23:28 by Dalia Chow MD) Back pain with history of spinal surgery (Unknown) Essential hypertension (Unknown) Hyperlipidemia (Unknown) Family History Family History Mother Asthma Depression Hypertension Family history of arthritis Mother Depression Father Depression Hypertension Diabetes mellitus Family history of arthritis Family history of hearing loss Family history of mental disorder Grandparent Asthma Family history of hearing loss Sibling Asthma Family history of attention deficit hyperactivity disorder (ADHD) Grandparent Hypertension Family history of arthritis Family history of cardiovascular disease Family history of hearing loss Other Cerebrovascular accident Diabetes mellitus Family history of alcoholism Family history of malignant neoplasm Other Family history of migraine headaches Family history of obesity Family history of seizure disorder Social History Social History Smoking packs per day: 1 Smoking cigarettes per day: 20.0 Years smoked: 13 Smoking pack-years: 13.00 Second hand tobacco smoke exposure: Yes Smoking end date: 07/07/07 Alcohol intake: never Alcohol use details: once in a while Substance use: current Substance use type: marijuana Other substance usage details: Daily usage Gender identity (if verbalized by the patient): Male Sexual Orientation (
[2022-02-26] MEDS: ACETAMINOPHEN 500 MG TABLET 1000 MG PO (21:07)
[2022-02-26] MEDS: diazePAM (*CRX) 5 MG TABLET PO (21:07)
[2022-02-26] MEDS: DEXAMETHASONE SOD PHOS INJ 4 MG/ML VIAL 10 MG BY MOUTH (21:09)
[2022-02-26 21:10] LABS: Basophils Percent Auto 0.3 % (0.2-1.2); Eosinophils Absolute Auto 0.2 K/mm3 (0-0.3); Hematocrit 40.1 % (42.0-52.0); Hemoglobin 13.6 g/dL (14.0-18.0); Immature Granulocyte Absolute 0.04 K/mm3 (0.00-0.031); Immature Granulocyte Percent A 0.4 % (0-0.5); Lymphocytes Absolute Auto 2.09 K/mm3 (0.9-3.2); Lymphocytes Percent Auto 22.4 % (18.3-44.2); Mean Corpuscular HGB Conc 33.9 g/dl (32-36); Mean Corpuscular Hemoglobin 29.1 pg (26-34); Mean Corpuscular Volume 85.9 fl (80-100); Mean Platelet Volume 9.1 fl (7.4-10.4); Monocytes Absolute Auto 0.7 K/mm3 (0.1-0.6); Monocytes Percent Auto 7.1 % (2.6-8.5); Neutrophils Absolute Auto 6.3 K/mm3 (1.3-6.7); Neutrophils Percent Auto 67.8 % (45.5-73.1); Platelet Count Result 191 k/mm3 (150-375); Red Blood Count 4.67 M/mm3 (4.6-6.20); Red Cell Distribution Width 12.8 % (11.5-14.5); White Blood Count 9.4 K/mm3 (4.5-10.0)
[2022-02-26] MEDS: KETOROLAC (*BKC) 60 MG/2 ML VIAL 30 MG IM (21:11)
[2022-02-26 21:20] LABS: Anion Gap 11 mmol/L (8-16); Blood Urea Nitrogen 10 mg/dL (9-20); Calcium 8.5 mg/dL (8.4-10.2); Carbon Dioxide 28 mmol/L (22-30); Chloride 103 mmol/L (98-107); Estimated CRCL calculation 96 ml/min; Estimated Glomerular Filt Rate > 60; Glucose 90 mg/dL (65-110); Potassium 3.4 mmol/L (3.4-5.0); Sodium 142 mmol/L (137-145)
[2022-02-26 21:28] LABS: CRP < 0.5 mg/dL (<1.0)
[2022-02-26 21:46] LABS: Erythrocyte Sedimentation Rate 10 mm/hr (0-20)
== END 2022-02-27 00:04 | disposition home or self-care (01) ==
PROVIDERS: Emergency Provider Emergency Medicine
DX: G89.4 Chronic pain syndrome (principal); M54.6 Pain in thoracic spine; M54.2 Cervicalgia; M54.50 Low back pain, unspecified; N28.89 Other specified disorders of kidney and ureter; I10 Essential (primary) hypertension; E78.5 Hyperlipidemia, unspecified; Z98.1 Arthrodesis status; F17.210 Nicotine dependence, cigarettes, uncomplicated
CPT/HCPCS: 36415; 72126; 72129; 72132; 80048; 85025; 85652; 86140; 96372; 99284; A9270; J1100; J1885; Q9967

== ENCOUNTER 2022-05-01 09:32 | Outpatient (CLI) | payer OTHER, SELFPAY ==
[2022-05-01 21:15] LABS: Thyroid Stimulating Hormone 0.596 uIU/mL (0.465-4.680)
[2022-05-01 21:27] LABS: Alanine Aminotransferase 118 U/L (6-50); Albumin Level 4.4 g/dL (3.5-5.1); Alkaline Phosphatase 66 U/L (38-126); Anion Gap 5 mmol/L (8-16); Aspartate Amino Transferase 66 U/L (17-59); Bilirubin,Total 0.8 mg/dL (0.2-1.3); Blood Urea Nitrogen 10 mg/dL (9-20); Calcium 8.2 mg/dL (8.4-10.2); Carbon Dioxide 30 mmol/L (22-30); Chloride 103 mmol/L (98-107); Estimated Glomerular Filt Rate > 60; Glucose 97 mg/dL (65-110); Potassium 3.8 mmol/L (3.4-5.0); Sodium 138 mmol/L (137-145)
== END 2022-05-01 09:33 | disposition home or self-care (01) ==
LOC: ANHGOSHLAB 09:33
PROVIDERS: PCP Internal Medicine; Visit Provider Internal Medicine
DX: R74.8 Abnormal levels of other serum enzymes (principal); R79.89 Other specified abnormal findings of blood chemistry
CPT/HCPCS: 36415; 80053; 84443

== ENCOUNTER 2022-07-01 13:32 | Outpatient (CLI) | payer OTHER, SELFPAY ==
--- NOTE | ~2022-07-01 | XR_ITS ---
EXAM: XR knee LT min 4V DATE: 07/01/2022 13:51 HISTORY: M25.562 - Pain in left knee . COMPARISON: 12/08/2019. FINDINGS: Normal mineralization. No fracture or dislocation. No lytic or blastic lesion. Mild tricom partmental osteophytosis. Anterior tibial tuberosity ossicle. No erosion or periosteal change. Soft t issues within normal limits. IMPRESSION: Mild left knee osteoarthritis. Reviewed, dictated and finalized at location K. AURANT AREA MANAGER
== END 2022-07-01 13:33 ==
LOC: MICIMG 13:34
PROVIDERS: PCP Family Medicine; Visit Provider Family Medicine
DX: M17.12 Unilateral primary osteoarthritis, left knee (principal)
CPT/HCPCS: 73564

== ENCOUNTER 2022-10-14 01:46 | Day surgery (SDC) | payer OTHER, SELFPAY ==
[2022-10-06 14:04] VITALS: BMI 35.2
--- NOTE | 2022-10-06 14:13 | PC.NURSE ---
Report to the Outpatient Waiting Room, entrance under the green pavilion located off [facility], at time _1145_ on date _[id number]_. Planned Procedure Time: _145pm_. Time changes happen often and if your time is changed the preop area will call you the afternoon before. - You and your visitor will be asked to self-screen and do not enter if you have any COVID symptoms. - A mask is optional within the hospital at this time. Patients may have clear liquids (water, carbonated beverages, clear teas, apple juice) until 3 hours prior to surgery with a maximum of 20 ounces. - No food from midnight until time of surgery Take the following medications with a SIP of water the morning of surgery: Amlodipine, Duloxetine and Cannibus DO NOT STOP ANY OF YOUR OTHER PRESCRIPTION MEDICATIONS PRIOR TO SURGERY ?EXCEPT THE FOLLOWING Medications to discontinue per physician None Date to take last dose Please no make-up, nail georgian, hairspray, perfume, deodorant, or body powder the day of surgery. No jewelry (including any body piercings) or valuables the day of surgery, leave them at home. Please take a shower or bath the night before, or the morning of, surgery with an antibacterial soap. Wear comfortable, loose fitting clothing. - Jewelry must be removed prior to entering the operating room. Rings and piercings that are not removed may be cut off. - The hospital will not accept responsibility for valuables. - Please leave all valuables, including medications, at home the day of surgery. If you are going home after surgery, a licensed services delivery driver must drive you home. - NO public transportation without another adult if you receive anesthesia. - We recommend that an adult stay with you for 24 hours following discharge. - We also recommend that you do not drive, make important decision, drink alcoholic beverages, or take any drugs that were not prescribed by your health care provider for at least 24 hours after your discharge time. Follow any additional instructions given to you from your surgeon. If you or anyone in your household have experienced Covid symptoms in the past week, please notify your surgeon or the nurse liaison at the phone number below for possible testing. Telephone instructions given to __Patient___and asked if any additional questions and then verbalized understanding. Patient advised to call surgeon office or pre surgery nurse liaison [phone] if any additional questions.
--- NOTE | 2022-10-13 18:41 | PM.IMHP ---
H&P: HPI History of Present Illness Date/Time: 10/13/22 18:41 Chief Complaint: Nasal obstruction, nasal congestion, septal deviation, turbinate hypertrophy Narrative: Planned procedure Review of Systems Review of Systems: All systems reviewed & are unremarkable except as noted in HPI and below PMFSH Past Medical History Medical History Anxiety Arthritis Back pain with history of spinal surgery (Unknown) Chronic low back pain Essential hypertension (Unknown) Hyperlipidemia (Unknown) Renal mass, right Family History Family History Mother Asthma Depression Hypertension Family history of arthritis Mother Depression Father Depression Hypertension Diabetes mellitus Family history of arthritis Family history of hearing loss Family history of mental disorder Grandparent Asthma Family history of hearing loss Sibling Asthma Family history of attention deficit hyperactivity disorder (ADHD) Grandparent Hypertension Family history of arthritis Family history of cardiovascular disease Family history of hearing loss Other Cerebrovascular accident Diabetes mellitus Family history of alcoholism Family history of malignant neoplasm Other Family history of migraine headaches Family history of obesity Family history of seizure disorder Social History Social History Social History: Caffeine-coffee Smoking packs per day: 1 Smoking cigarettes per day: 20.0 Years smoked: 13 Smoking pack-years: 13.00 Smoking status: Never smoker Second hand tobacco smoke exposure: Yes Smoking end date: 07/07/07 Alcohol intake: current Alcohol use details: once in a while Substance use: current Substance use type: marijuana Other substance usage details: Daily usage Lack of Transportation: YES Lack of Food: Sometimes True Current Housing: I Have Housing Concerned About Future Housing: No Difficulty Paying Gas/Electric Bills: No Difficulty Paying for Meds: No Currently Unemployed: Decline to Answer Education: High School Diploma/GED Difficulty w/ Childcare or Family Care: No Living arrangements: with family Gender identity (if verbalized by the patient): Male Sexual Orientation (if Verbalized by the Patient): Straight or Heterosexual Spiritual care concerns: No Meds Home Medications and Allergies Home Medications Medication Instructions Recorded Confirmed Type losartan 100 mg tablet 100 mg PO DAILY #90 tabs 09/05/21 10/06/22 Rx amlodipine 10 mg tablet 10 mg PO DAILY #90 tabs 02/03/22 10/06/22 Rx cannabidiol 100 mg/mL oral solution PO 05/01/22 07/15/22 History duloxetine 60 mg capsule,delayed 60 mg PO DAILY #90 caps 09/22/22 10/06/22 Rx release trazodone 50 mg tablet 100 mg PO QHS insomnia #180 tabs 09/22/22 10/06/22 Rx Allergies Allergy/AdvReac Type Severity Reaction Status Date / Time No Known Allergies Allergy Verified 10/06/22 14:01 Exam Narrative: septal deviation, septal perforation, turbinate hypertrophy Assessment and Plan Assessment and plan (1) Nasal septal deviation: Code(s): J34.2 - Deviated nasal septum Status: Acute Assessment and Plan: ?plan or septoplasty turbinate reduction with outfracture risks were discussed including worsening of septal perforation need for further procedures failure need for splint placement need for time off work and hearing risks of narcotic usage pain bleeding infection CSF leak brain brain damage blindness change in vision patient voiced understanding of these risks and agreed.? (2) Nasal obstruction: Code(s): J34.89 - Other specified disorders of nose and nasal sinuses Status: Acute (3) Nasal congestion: Code(s): R09.81 - Nasal congestion Status: Acute (
[2022-10-14] VITALS (8 sets, daily range): BP systolic 121–145; BP diastolic 69–85; PULSE 63–85; RESP 12–20; TEMP 36.4–36.6; O2SAT 93–98
--- NOTE | 2022-10-14 07:19 | WPDHPUPDATE1 ---
History and Physical Update Update Date/Time: 10/14/22 07:19 History and Physical has been reviewed, including an updated exam of the patient. There are NO changes in the patient's condition. Risks, benefits, and alternatives have been discussed and questions answered. Patient agrees to proceed with procedure.
--- NOTE | 2022-10-14 09:29 | ECG_ITS ---
Measurements Intervals [place] Rate: 52 P: 15 [place]: 193 QRS: -13 QRSD: 117 T: -8 QT: 435 QTc: 407 Interpretive Statements SINUS BRADYCARDIA INTRAVENTRICULAR CONDUCTION DELAY MINIMAL Q WAVES- HIGH LATERAL LEADS BORDERLINE T WAVE ABNORMALITY- INFERIOR LEADS BORDERLINE ECG COMPARED TO ECG 06/27/2021 19:30:17 INTRAVENTRICULAR CONDUCTION DELAY NOW PRESENT Electronically Signed On 10-14-2022 12:15:01 CDT by Bert Ny D.O.
[2022-10-14] MEDS: ACETAMINOPHEN 500 MG TABLET 1000 MG PO (11:50)
[2022-10-14] MEDS: LACTATED RINGERS 1,000 ML 30 ML IV CONT ×2 (12:00→14:44)
--- NOTE | 2022-10-14 12:08 | SUR.PREOP ---
1200- SPOKE WITH DR. SMALL ABOUT PT HAVING 3- 16 OZ BOTTLE OF WATER BEFORE 1030. HE IS AWARE AND STATED IT IS OK.
--- NOTE | 2022-10-14 12:37 | WPDANESEPPF ---
Anes - Initial Pre Proc Eval Procedure: Operation Date: 10/14/22 13:45 Proposed Procedures p Endoscopic Septoplasty, - Stuart Cooper MD s Bilateral Inferior Turbinectomy with Outfracture - Stuart Cooper MD Date/Time: 10/14/22 12:37 Surgeon: Stuart Cooper MD Pre Op Diagnosis: septal deviation, turbinate hypertrophy Patient Data Age: 42 Gender: M Height: 1.78 m Weight: 114.8 kg Last Vital Signs Temp 36.6 C 10/14/22 12:01 Pulse 63 10/14/22 12:01 Resp 16 10/14/22 12:01 BP 121/77 10/14/22 12:01 Pulse Ox 97 10/14/22 12:01 O2 Del Method Room Air 10/14/22 12:01 Allergies Allergy/AdvReac Type Severity Reaction Status Date / Time No Known Allergies Allergy Verified 10/14/22 11:32 Home Medications Medication Instructions Recorded Confirmed Type losartan 100 mg tablet 100 mg PO DAILY #90 tabs 09/05/21 10/14/22 Rx amlodipine 10 mg tablet 10 mg PO DAILY #90 tabs 02/03/22 10/14/22 Rx cannabidiol 100 mg/mL oral solution PO 05/01/22 07/15/22 History duloxetine 60 mg capsule,delayed 60 mg PO DAILY #90 caps 09/22/22 10/14/22 Rx release trazodone 50 mg tablet 100 mg PO QHS insomnia #180 tabs 09/22/22 10/14/22 Rx Patient hx anesthesia problems: none Family hx anesthesia problems: none Results Review: All pre-operative results and documents have been reviewed as part of the pre-operative evaluation. [facility] Past Medical History Medical History Anxiety Arthritis Back pain with history of spinal surgery (Unknown) Chronic low back pain Essential hypertension (Unknown) Hyperlipidemia (Unknown) Renal mass, right Family History Family History Mother Asthma Depression Hypertension Family history of arthritis Mother Depression Father Depression Hypertension Diabetes mellitus Family history of arthritis Family history of hearing loss Family history of mental disorder Grandparent Asthma Family history of hearing loss Sibling Asthma Family history of attention deficit hyperactivity disorder (ADHD) Grandparent Hypertension Family history of arthritis Family history of cardiovascular disease Family history of hearing loss Other Cerebrovascular accident Diabetes mellitus Family history of alcoholism Family history of malignant neoplasm Other Family history of migraine headaches Family history of obesity Family history of seizure disorder Social History Social History Social History: Caffeine-coffee Smoking packs per day: 1 Smoking cigarettes per day: 20.0 Years smoked: 13 Smoking pack-years: 13.00 Smoking status: Never smoker Second hand tobacco smoke exposure: Yes Smoking end date: 07/07/07 Alcohol intake: current Alcohol use details: once in a while Substance use: current Substance use type: marijuana Other substance usage details: Daily usage Lack of Transportation: YES Lack of Food: Sometimes True Current Housing: I Have Housing Concerned About Future Housing: No Difficulty Paying Gas/Electric Bills: No Difficulty Paying for Meds: No Currently Unemployed: Decline to Answer Education: High School Diploma/GED Difficulty w/ Childcare or Family Care: No Living arrangements: with family Gender identity (if verbalized by the patient): Male Sexual Orientation (if Verbalized by the Patient): Straight or Heterosexual Spiritual care concerns: No Anes - Eval Final PreProcedure Day of Procedure 10/14/22 12:37 Patient weight: obese Heart: regular rate and rhythm Lungs: decreased breath sounds Airway: Mallampati scale class II Neurological: alert and oriented Last oral intake: >/= 8 hours ASA classification: III Emergent: no Anesthetic plan: proceed Anesthesia type and monitoring: general ETT and standard monitoring Results R
[2022-10-14] MEDS: ceFAZolin 2 GM/D5W 50 ML 2 GM/50 ML BAG IVPB (12:47)
[2022-10-14] MEDS: LIDO 1%/EPINEPHRINE 1:100,000 50 ML VIAL INFILTRATE (12:58)
[2022-10-14] MEDS: OXYMETAZOLINE HCL 0.05% NAS 15 ML BTL (*BKC) 1 SPRAY NASAL (12:58)
--- NOTE | 2022-10-14 15:06 | P.OP_ITS ---
Procedure Note - Detailed Date of Procedure 10/14/22 Pre-op Diagnosis septal deviation, turbinate hypertrophy, nasal obstruction, nasal congestion Post-op Diagnosis Same Procedure Performed endoscopic assisted septoplasty inferior turbinate reduction with outfracture Surgeon Stuart Cooper MD Anesthesia General Indications see above Findings right septal deviation left severe caudal off the crest perforation turbinate hypertrophy Description of Procedure patient identified consent verified. Patient brought operating room. Time-out performed. General anesthesia induced endotracheal tube secured airway. P atient prepped draped position procedure confirm 2nd time-out performed. Afrin- soaked pledgets placed in bilateral nasal passages and allowed to sit for 5 minutes then removed. 0 degree and endoscope utilized the septum was so offset off the crest that had to do hemitransection incision hemitransection incision made on the left side bilateral nasal septal flaps elevated actually around the perforation. Deviated nasal septum removed combination Dago Tiwari forceps osteotome Herson forceps. The caudal septum with a significant L strut which was left, was sutured with a 4-0 Monocryl suture anteriorly suspending the anterior septum in a more anatomically appropriate position and correcting the anterior deviation. [place] incision then closed sorry hemitransection incision closed with 5 interrupted 5 0 fast gut sutures. Turbinates then outfractured and reduced in the submucosal plane using Bovie inesry using microdebrider with turbinate blade. Total blood loss about 25 cc Chavez splints then placed trimmed appropriately sutured anteriorly using a 3-0 mattressed nylon suture. I performed all dictated portions procedure no complications care the patient given Anesthesiology patient taken to PACU. Estimated Blood Loss 25 Drains No Packing No Pathology None sent Complications No immediate complications Condition Stable Disposition PACU [facility] Billing Surgery - Charge Forward: Surgery Billing
[2022-10-14] MEDS: fentaNYL CITRATE INJ (*CRX) 100 MCG/2 ML VIAL 25 MCG IV PUSH ×4 (15:14→15:24)
[2022-10-14] MEDS: oxyCODONE HCL (*CRX) 5 MG TAB IR PO (15:45)
== END 2022-10-14 16:18 | disposition home or self-care (01) ==
PROVIDERS: PCP Family Medicine; Visit Provider Otolaryngology
PROC: (CPT 30520; principal; 2022-10-14 13:45)
PROC: (CPT 30520; 2022-10-14 13:45)
DX: J34.2 Deviated nasal septum (principal); J34.3 Hypertrophy of nasal turbinates; J34.89 Other specified disorders of nose and nasal sinuses; R09.81 Nasal congestion; I10 Essential (primary) hypertension; E78.5 Hyperlipidemia, unspecified; F41.9 Anxiety disorder, unspecified; Z87.891 Personal history of nicotine dependence; F12.90 Cannabis use, unspecified, uncomplicated; E66.9 Obesity, unspecified; Z68.36 Body mass index [BMI] 36.0-36.9, adult
CPT/HCPCS: 30520; 30140; 93005; A9270; J0330; J0690; J1100; J1170; J2250; J2370; J2405; J2704; J3010; J7120

== ENCOUNTER 2024-03-16 18:30 | Emergency (ER) | payer OTHER, SELFPAY ==
[2024-03-16 18:40] VITALS: BP 144/93; PULSE 68; RESP 20; TEMP 37.3; O2SAT 100
--- NOTE | 2024-03-16 18:44 | ED_ITS ---
HPI - URI/Sore Throat General Chief Complaint: Upper Respiratory Infection Stated Complaint: Fever/Sinus Time Seen by Provider: 03/16/24 18:44 Source: patient, RN notes reviewed and old records reviewed Mode of arrival: ambulatory Limitations: no limitations History of Present Illness HPI Narrative: 43-year-old male presents to the [facility] with complaints of fevers, sinus congestion, fatigue for the last 9 days. Patient reports fevers between 99 and 101.8. Has tried cold medications with no relief. Patient denies any coughing. Denies any chest pain or shortness of breath. Denies abdominal pain. Onset (ago): day(s) (9) Related Data Allergies Allergy/AdvReac Type Severity Reaction Status Date / Time No Known Allergies Allergy Verified 03/16/24 18:33 Review of Systems Review of Systems: All systems reviewed & are unremarkable except as noted in HPI and below Constitutional: Constitutional: Reports as per HPI, Reports body ache(s), Reports fatigue and Reports fever(s) ENT: Reports as per HPI and Reports nasal congestion Cardiovascular: Cardiovascular: Reports no additional cardiovascular comp laints, Denies chest pain and Denies dyspnea Respiratory: Respiratory: Reports as per HPI, Reports chest congestion, Reports cough and Denies dyspnea Gastrointestinal: Gastrointestinal: Reports no additional gastrointestinal complaints, Denies abdominal pain, Denies nausea and Denies vomiting Musculoskeletal: Musculoskeletal: Reports no additional musculoskeletal complaints Integumentary/Breasts: Skin/Breast: Reports system reviewed and no additional complaints, except as docu PMFSH Past Medical History Medical History Anxiety Arthritis Back pain with history of spinal surgery (Unknown) Chronic low back pain Essential hypertension (Unknown) Hyperlipidemia (Unknown) Renal mass, right Family History Family History Mother Asthma Depression Hypertension Family history of arthritis Mother Depression Father Depression Hypertension Diabetes mellitus Family history of arthritis Family history of hearing loss Family history of mental disorder Grandparent Asthma Family history of hearing loss Sibling Asthma Family history of attention deficit hyperactivity disorder (ADHD) Grandparent Hypertension Family history of arthritis Family history of cardiovascular disease Family history of hearing loss Other Cerebrovascular accident Diabetes mellitus Family history of alcoholism Family history of malignant neoplasm Other Family history of migraine headaches Family history of obesity Family history of seizure disorder Social History Social History Social History: Caffeine-coffee Smoking packs per day: 1 Smoking cigarettes per day: 20.0 Years smoked: 13 Smoking pack-years: 13.00 Smoking status: Never smoker Second hand tobacco smoke exposure: Yes Smoking end date: 07/07/07 Alcohol intake: former Substance use: current Substance use type: marijuana Other substance usage details: Daily usage Lack of Transportation: YES Lack of Food: Sometimes True Current Housing: I Have Housing Concerned About Future Housing: No Difficulty Paying Gas/Electric Bills: YES Difficulty Paying for Meds: YES Currently Unemployed: No Education: High School Diploma/GED Difficulty w/ Childcare or Family Care: No Living arrangements: with family Gender identity (if verbalized by the patient): Male Sexual Orientation (if Verbalized by the Patient): Straight or Heterosexual Spiritual care concerns: No Comments At the time of my signature, I reviewed and agree with the nursing past medical, surgical, social, and family history. There is no relevant family history pertinent to the patient complaint. Exam Const: General: cooperative, healthy appearing, comfortable, no acute distress, well developed, alert and well nourished Nutritional Appearance: well nourished Orientation/consciousness: patient oriented x3 Limitations: no limitations HENMT: Head: normal to inspection Ears: hearing grossly normal bilaterally, external ears normal, TM's normal bilaterally, EAC's normal, mastoids normal and no periauricular adenopathy Face/Nose/Sinus: Normal external nose present, normal facial exam and face symmetric Face and sinus: normal facial exam, face symmetric, no ecchymosis and sinus tenderness frontal and maxillary Mouth: Yes Normal oral and palatal mucosa present, Yes lip normal and Yes tongue normal Throat: uvula midline, postnasal drainage and no uvular edema Eyes: General: appearance normal, both eyes and all related structures Alignment and Position: alignment normal Periorbital: periorbital findings normal Neck: Neck: normal visual inspection, full ROM, no lymphadenopathy and no meningeal signs Chest: Chest palpation & inspection: normal inspection of the chest Resp: Effort & Inspection: normal respiratory effort and able to speak in complete sentences Auscultation: clear to auscultation bilaterally, no crackles, no rales, no rhonchi and no wheezes Cardio: Rate: regular rate Skin: General skin exam: normal color and no rashes or lesions noted Lesions: no lesions Rashes: no rashes Wounds: no wounds Neuro: General: patient oriented x3, gait normal, tone normal, moves all extremities and no meningeal signs Cognition (Neuro): normal cognition Speech: normal speech Gait exam (Neuro): Normal gait present Extrem: General: normal to inspection, full ROM, capillary refill normal and normal gait Psych: Appearance: grossly normal and well kempt Mental Status: mental status grossly normal Speech and movement: Normal speech and movement present and Clear speech present Affect: normal affect Attitude: cooperative Course Course Level of Care: Express Care Visit Vital Signs Vital signs: Vital Signs Temperature 99.1 F 03/16/24 18:40 Pulse Rate 68 03/16/24 18:40 Respiratory Rate 20 03/16/24 18:40 Blood Pressure 144/93 H 03/16/24 18:40 Pulse Oximetry 100 03/16/24 18:40 Oxygen Delivery Room Air 03/16/24 18:40 Temperature 99.1 F 03/16/24 18:40 Pulse Rate 68 03/16/24 18:40 Respiratory Rate 20 03/16/24 18:40 Blood Pressure 144/93 H 03/16/24 18:40 Pulse Oximetry 100 03/16/24 18:40 Oxygen Delivery Room Air 03/16/24 18:40 Reviewed MDM - URI/Sore Throat MDM Narrative Medical decision making narrative: Patient sitting comfortably in exam room. Nontoxic, vitals stable. Patient in no acute distress. Patient presents with a 9 day history of sinusitis. Patient appropriate for outpatient treatment and follow-up. Discharge instructions reviewed with patient, as well as provided in writing per nursing staff. The instructions also include specific and strict return/GO TO THE ER as well as f/u information. All questions have been answered, and the patient deny any further questions with discharge and discharge plan. Some parts of this dictation were generated by voice recognition software and may contain typographical and/or grammatical inaccuracies. Differential Diagnosis Differential diagnosis: Likely upper respiratory infection, otitis media, sinusitis, viral infection, bronchitis and pharyngitis Critical Care Time Critical Care Time Critical Care Time: No Discharge Plan Discharge Clinical Impression: Sinusitis Patient Disposition: Home, Self-Care Condition: Stable Instructions: Antibiotic Form, Sinusitis (ED) Additional Instructions: Take Tylenol or Motrin for pain. Use a humidifier or vaporizer at night. Take Medications as prescribed. Drink plenty of water. 8-10 glasses per day. Use flonase 2 times per day for 5 days then daily Take mucinex 2 times per day and be sure to take with 8oz of water. Follow up with Primary provider if not getting better. Go to the ER for new or worsening symptoms. Patient Language: Greenlandic Prescriptions: New doxycycline monohydrate 100 mg tablet 100 mg PO BID Qty: 14 0RF No Action duloxetine 60 mg capsule,delayed release(DR/EC) 60 mg PO DAILY Qty: 90 1RF Rx Instructions: TAKE ONE CAPSULE BY MOUTH ONCE DAILY trazodone 50 mg tablet 100 mg PO QHS Qty: 180 1RF losartan 100 mg tablet 100 mg PO DAILY Qty: 90 1RF amlodipine 10 mg tablet 10 mg PO DAILY Qty: 90 1RF Follow-up/Referrals: Tha Steve DO [Primary Care Provider] - 2 Weeks ([facility] care follow up blood pressure check 144/93) Time of Disposition: 18:57
== END 2024-03-16 19:05 | disposition home or self-care (01) ==
PROVIDERS: Emergency Provider Nurse Practitioner; PCP Family Medicine
DX: J32.9 Chronic sinusitis, unspecified (principal); Z87.891 Personal history of nicotine dependence; M19.90 Unspecified osteoarthritis, unspecified site
CPT/HCPCS: 99213; G0463

== ENCOUNTER 2024-07-15 19:28 | Emergency (ER) | payer OTHER, SELFPAY ==
[2024-07-15 20:02] VITALS: BP 163/99; PULSE 99; RESP 20; TEMP 36.7; O2SAT 96
[2024-07-15 22:36] LABS: Influenza A QL RT-PCR Negative (Negative); Influenza B QL RT-PCR Negative (Negative); RSV RNA, RT-PCR Negative (Negative); SARS-CoV-2 RNA PCR Negative (Negative)
--- NOTE | 2024-07-15 23:59 | ED.EAR ---
HPI - Ear Problem General Chief complaint: Ear Stated complaint: ear and jaw pain Time Seen by Provider: 07/15/24 22:13 History of Present Illness HPI Narrative: Patient is a 44-year-old male who presents to the ER with complaints left-sided ear pain that started 2-3 days ago. He endorses a history of high blood pressure, chronic back pain, seasonal allergies, and ?ear problems. Patient reports both ears are painful, but his L ear has been very sensitive to sound and he has noticed blood coming out of his ear. He reports he had a bug fly in my ear when I was a young boy and my ear has never been the same. Patient reports he uses marijuana for chronic pain control and other natural substances. He denies any mastoid tenderness, neck stiffness, cough, sore throat, recent congestion. Related Data Allergies Allergy/AdvReac Type Severity Reaction Status Date / Time No Known Allergies Allergy Verified 07/15/24 19:29 Review of Systems Review of Systems: All systems reviewed & are unremarkable except as noted in HPI and below PMFSH Past Medical History Medical History Chronic low back pain Renal mass, right Arthritis Anxiety Back pain with history of spinal surgery (Unknown) Hyperlipidemia (Unknown) Essential hypertension (Unknown) Family History Family History Mother Asthma Depression Hypertension Family history of arthritis Mother Depression Father Depression Hypertension Diabetes mellitus Family history of arthritis Family history of hearing loss Family history of mental disorder Grandparent Asthma Family history of hearing loss Sibling Asthma Family history of attention deficit hyperactivity disorder (ADHD) Grandparent Hypertension Family history of arthritis Family history of cardiovascular disease Family history of hearing loss Other Cerebrovascular accident Diabetes mellitus Family history of alcoholism Family history of malignant neoplasm Other Family history of migraine headaches Family history of obesity Family history of seizure disorder Social History Social History Social History: Caffeine-coffee Smoking packs per day: 1 Smoking cigarettes per day: 20.0 Years smoked: 13 Smoking pack-years: 13.00 Smoking status: Never smoker Second hand tobacco smoke exposure: Yes Smoking end date: 07/07/07 Alcohol intake: former Substance use: current Substance use type: marijuana Other substance usage details: Daily usage Lack of Transportation: YES Lack of Food: Sometimes True Current Housing: I Have Housing Concerned About Future Housing: No Difficulty Paying Gas/Electric Bills: YES Difficulty Paying for Meds: YES Currently Unemployed: No Education: High School Diploma/GED Difficulty w/ Childcare or Family Care: No Living arrangements: with family Gender identity (if verbalized by the patient): Male Sexual Orientation (if Verbalized by the Patient): Straight or Heterosexual Spiritual care concerns: No Exam Narrative: GENERAL: Ill-appearing, well-nourished, non-toxic, in mild distress d/t pain. HEAD: Normocephalic, atraumatic. EARS: R ear canal redness, R clear tympanic membrane, L ear canal tympanic membrane ruptured, reddened swollen L ear canal NECK: Supple. Mild post-auricular lymph node enlargement, mild cervical lymphedema, no masses. RESPIRATORY: Airway patent, respirations nonlabored. Clear to auscultation bilaterally, no rales, rhonchi, wheezing. CARDIOVASCULAR: Regular rate and rhythm without murmurs, rubs, or gallops. Peripheral pulses 2+ and equal bilaterally. MUSCULOSKELETAL: Moves all extremities. Strength/ROM intact without gross deformities. SKIN: Warm, dry, normal color. No rashes. NEURO: A&O X3. Speech clear. Cranial nerves II-XII grossly intact. Steady gait. No ataxic movements. PSYCHIATRIC: Appropriate mood and affect. Normal interaction. Course Vital Signs Vital signs: Vital Signs Temperature 36.7 C 07/15/24 20:02 Pulse Rate 99 07/15/24 20:02 Respiratory Rate 07/15/24 20:02 Blood Pressure 163/99 H 07/15/24 20:02 Pulse Oximetry 96 07/15/24 20:02 Oxygen Delivery Room Air 07/15/24 20:02 Temperature 36.7 C 07/15/24 20:02 Pulse Rate 99 07/15/24 20:02 Respiratory Rate 20 07/15/24 20:02 Blood Pressure 163/99 H 07/15/24 20:02 Pulse Oximetry 96 07/15/24 20:02 Oxygen Delivery Room Air 07/15/24 20:02 Medical Decision Making MDM Narrative Medical decision making narrative: Patient is a 44-year-old male who presents to the ER with complaints left-sided ear pain that started 2-3 days ago. He endorses a history of high blood pressure, chronic back pain, seasonal allergies, and ?ear problems. Patient reports both ears are painful, but his L ear has been very sensitive to sound and he has noticed blood coming out of his ear. He reports he had a bug fly in my ear when I was a young boy and my ear has never been the same. Patient reports he uses marijuana for chronic pain control and other natural substances. He denies any mastoid tenderness, neck stiffness, cough, sore throat, recent congestion. Labs Ordered: None necessary Imaging Ordered: None necessary Medications Ordered: Prednisone 60 mg p.o., Toradol 60 mg IM, Augmentin p.o. Diagnosis: Left ear tympanic membrane rupture Consults: ENT (outpatient) Patient Education/Shared MDM: Results of exam shared with patient. He denies any improvement following pain medication administration. Pt will be given a dose of [place] and then discharged home. Patient strongly advised to follow-up with ENT as an outpatient as soon as possible. He will be discharged home with a prescription for Medrol Dose [place], Augmentin PO and Ciprodex otic. Pt should use Tylenol and Ibuprofen for pain control. Strict return precautions provided. Patient verbalized understanding is in agreement with plan. Vital signs stable at time of discharge. All questions answered. Differential Diagnosis Differential Diagnosis: L otitis media, L otitis externa, L tympanic membrane rupture Vital Signs Vital Signs: Vital Signs Temperature 36.7 C 07/15/24 20:02 Pulse Rate 99 07/15/24 20:02 Respiratory Rate 20 07/15/24 20:02 Blood Pressure 163/99 H 07/15/24 20:02 Pulse Oximetry 96 07/15/24 20:02 Oxygen Delivery Room Air 07/15/24 20:02 Temperature 36.7 C 07/15/24 20:02 Pulse Rate 99 07/15/24 20:02 Respiratory Rate 20 07/15/24 20:02 Blood Pressure 163/99 H 07/15/24 20:02 Pulse Oximetry 96 07/15/24 20:02 Oxygen Delivery Room Air 07/15/24 20:02 Lab Data Lab results reviewed: Yes I reviewed the patient's lab results. Labs: Lab Results 07/15/24 Range/Units 21:53 Influenza A (RT-PCR) Negative (Negative) Influenza B (RT-PCR) Negative (Negative) RSV (RT-PCR) Negative (Negative) SARS-CoV-2 RNA (RT-PCR) Negative (Negative) Discharge Plan Discharge Clinical Impression: Acute pain of left ear, Acute suppur left otitis media w/spontan rupture of tympanic membrane Patient Disposition: Home, Self-Care Condition: Stable Instructions: Antibiotic Form, Ruptured Eardrum (ED), Earache (ED) Additional Instructions: Please return to the ER with an worsening symptoms. Follow-up with ENT as soon as possible. Take all medications as prescribed. Complete your entire dose of antibiotics. Patient Language: [place]an Prescriptions: New methylprednisolone [Medrol (Forrest)] 4 mg tablets,dose pack See Rx Instructions .ROUTE .COMPLEX Qty: 21 0RF Rx Instructions: for 6 days amoxicillin-pot clavulanate 875-125 mg tablet 1 tablet PO Q12H Qty: 20 0RF ciprofloxacin-dexamethasone 0.3-0.1 % drops,suspension 4 drp EACH EAR Q12H 7 Days Qty: 7.5 0RF No Action doxycycline monohydrate 100 mg tablet 100 mg PO BID Qty: 14 0RF duloxetine 60 mg capsule,delayed release(DR/EC) 60 mg PO DAILY Qty: 90 1RF Rx Instructions: TAKE ONE CAPSULE BY MOUTH ONCE DAILY trazodone 50 mg tablet 100 mg PO QHS Qty: 180 1RF losartan 100 mg tablet 100 mg PO DAILY Qty: 90 1RF amlodipine 10 mg tablet 10 mg PO DAILY Qty: 90 1RF Follow-up/Referrals: ENT & Sleep [facility] [Outside] (ENT) Keke,Calixto Mcdonald MD [Non-Staff] - (ENT) Power,Tha Armstrong DO [Primary Care Provider] - Stand Alone Forms: Work/School Release IP Time of Disposition: 00:17
[2024-07-16] MEDS: KETOROLAC (*BKC) 60 MG/2 ML VIAL IM (00:08)
[2024-07-16] MEDS: predniSONE 20 MG TABLET 60 MG PO (00:08)
[2024-07-16] MEDS: AMOXICILLIN/CLAVULANATE K 875-125 MG TAB 1 TABLET PO (00:08)
[2024-07-16] MEDS: HYDROcodone/acetaminophen (*CRX) 5-325 MG TABLET 1 TAB PO (00:58)
[2024-07-16 01:02] VITALS: BP 155/96; PULSE 89; RESP 15; O2SAT 98
== END 2024-07-16 01:04 | disposition home or self-care (01) ==
PROVIDERS: Emergency Medicine; Emergency Provider Registered Nurse; PCP Family Medicine
DX: H66.012 Acute suppurative otitis media with spontaneous rupture of ear drum, left ear (principal); I10 Essential (primary) hypertension; E78.5 Hyperlipidemia, unspecified; M19.90 Unspecified osteoarthritis, unspecified site; F41.9 Anxiety disorder, unspecified; Z87.891 Personal history of nicotine dependence; Z79.899 Other long term (current) drug therapy
CPT/HCPCS: 87637; 96372; 99283; A9270; J1885; J7512

== ENCOUNTER 2024-09-08 14:37 | Emergency (ER) | payer OTHER, SELFPAY ==
[2024-09-08] VITALS (8 sets, daily range): BP systolic 136–164; BP diastolic 74–109; PULSE 59–87; RESP 12–21; TEMP 37; O2SAT 91–98
--- NOTE | ~2024-09-08 | CT_ITS ---
History: Chronic back pain PROCEDURE: CT thoracic and lumbar spine without intravenous contrast. COMPARISON: 02/26/2022 TECHNIQUE: Multiple contiguous axial images of the thoracic and lumbar spine were performed without the administ ration of intravenous contrast. DLP: 2242 mGy-cm FINDINGS: Preservation of the normal curvature of the thoracic and lumbar spines are identified. Posterior fixation at the level of L5 and S1 are identified. Disc spacers are noted at the level of L4/L5 and L5/S1. No acute compression fractures are present. Interval enlargement of the abnormality seen within the upper pole of the right kidney. This focus pr eviously measured 15.7 mm in greatest dimension, and now measures 19 x 18 x 17 mm (anterior to senior telecommunications engineer ior x medial to lateral x cranial to caudal dimension) for which contrast enhanced CT or MRI is recom mended for further evaluation with renal mass protocol. No additional soft tissue abnormality is noted. Impression: No acute compression fracture, as detailed above. Interval increase in size of the mass within the upper pole of the right kidney, when compared with examination for which contrast enhanced CT or MRI is recommended for further evaluation (with michelle al mass protocol). Reviewed, dictated and finalized at location A. Impression: No acute compression fracture, as detailed above. Interval increase in size of the mass within the upper pole of the right kidney , when compared with 2021 examination for which contrast enhanced CT or MRI is recommended for further evaluation (with renal mass protocol).
[2024-09-08 15:16] LABS: Basophils Percent Auto 0.3 % (0.2-1.2); Eosinophils Absolute Auto 0.1 K/mm3 (0-0.3); Eosinophils Percent Auto 0.7 % (0-4.4); Hematocrit 42.1 % (42.0-52.0); Hemoglobin 13.8 g/dL (14.0-18.0); Immature Granulocyte Absolute 0.03 K/mm3 (0.00-0.031); Immature Granulocyte Percent A 0.3 % (0-0.5); Lymphocytes Absolute Auto 2.58 K/mm3 (0.9-3.2); Lymphocytes Percent Auto 27.6 % (18.3-44.2); Mean Corpuscular HGB Conc 32.8 g/dl (32-36); Mean Corpuscular Volume 79.4 fl (80-100); Mean Platelet Volume 10.2 fl (7.4-10.4); Monocytes Absolute Auto 0.7 K/mm3 (0.1-0.6); Monocytes Percent Auto 7.5 % (2.6-8.5); Neutrophils Absolute Auto 5.9 K/mm3 (1.3-6.7); Neutrophils Percent Auto 63.6 % (45.5-73.1); Platelet Count Result 193 k/mm3 (150-375); White Blood Count 9.4 K/mm3 (4.5-10.0)
--- NOTE | 2024-09-08 15:19 | PC.NURSE ---
this RN went to check on the pt. pt says he was in pain and needed pain medicine. this RN educated pt that RN cannot prescribe pain medications only MDs can and unfortunately will have to wait for the MD to prescribe something. pt then proceed to throw off his BP cuff and pulse ox and pt said well unfortunately I'll be leaving then pt then tried to get out of the bed with no luck without being in pain, this RN said if he would like to leave he can but to let staff know to take his IV out. pt upset and still in the room. no EDP is signed up for the pt but all are made aware of the situation
[2024-09-08 15:27] LABS: Alanine Aminotransferase 35 U/L (6-50); Albumin Level 4.3 g/dL (3.5-5.1); Alkaline Phosphatase 75 U/L (38-126); Anion Gap 9 mmol/L (4-12); Aspartate Amino Transferase 22 U/L (17-59); Blood Urea Nitrogen 10 mg/dL (9-20); Calcium 8.7 mg/dL (8.4-10.2); Carbon Dioxide 24 mmol/L (22-30); Chloride 107 mmol/L (98-107); Estimated CRCL calculation 82 ml/min; Estimated Glomerular Filt Rate > 60; Glucose 101 mg/dL (65-110); Potassium 3.1 mmol/L (3.4-5.0); Sodium 140 mmol/L (137-145)
--- NOTE | 2024-09-08 16:02 | ED_ITS ---
HPI - Back Pain/Injury General Chief Complaint: Back Pain/Injury Stated Complaint: muscle spasm/back pain Time Seen by Provider: 09/08/24 15:57 Source: patient History of Present Illness HPI Narrative: 44 YEARS OLD WHITE MALE CAME TO THE ED BY AMBULANCE FROM HOME COMPLAINING OF SEVERE MUSCLE SPASM ACROSS THE LOWER BACK, STARTED IN THE LAST FEW WEEKS, GETTING WORSE LATELY. 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 HE DENIES ANY FEVER, CHILLS, NAUSEA, VOMITING, TRAUMA. PATIENT IS TELLING ME THAT HE BEEN RIDING CARS MORE THAN NORMAL WHICH USUALLY TRIGGER HIS LOWER BACK PAIN. 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 CURRENTLY PATIENT IS NOT ON ANY PAIN MEDICATION OR MUSCLE RELAXANT. IS TELLING ME THAT HE HAVE CHRONIC NUMBNESS AND TINGLING OF THE LOWER EXTREMITY BILATERALLY GOT SLIGHTLY WORSE OVER THE LAST 48 HOURS. HE DENIES PATIENT DENIES BOWEL DYSFUNCTION, BLADDER DYSFUNCTION, ALTERED SENSATION, FOCAL WEAKNESS, OR SADDLE NUMBNESS, Related Data Allergies Allergy/AdvReac Type Severity Reaction Status Date / Time No Known Allergies Allergy Verified 09/08/24 14:44 Review of Systems 2 Review of Systems: All systems reviewed & are unremarkable except as noted in HPI and below PMFSH Past Medical History Medical History Chronic low back pain Renal mass, right Arthritis Anxiety Back pain with history of spinal surgery (Unknown) Hyperlipidemia (Unknown) Essential hypertension (Unknown) Family History Family History Mother Asthma Depression Hypertension Family history of arthritis Mother Depression Father Depression Hypertension Diabetes mellitus Family history of arthritis Family history of hearing loss Family history of mental disorder Grandparent Asthma Family history of hearing loss Sibling Asthma Family history of attention deficit hyperactivity disorder (ADHD) Grandparent Hypertension Family history of arthritis Family history of cardiovascular disease Family history of hearing loss Other Cerebrovascular accident Diabetes mellitus Family history of alcoholism Family history of malignant neoplasm Other Family history of migraine headaches Family history of obesity Family history of seizure disorder Social History Social History Social History: Caffeine-coffee Smoking packs per day: 1 Smoking cigarettes per day: 20.0 Years smoked: 13 Smoking pack-years: 13.00 Smoking status: Never smoker Second hand tobacco smoke exposure: Yes Smoking end date: 07/07/07 Alcohol intake: former Substance use: current Substance use type: marijuana Other substance usage details: Daily usage Lack of Transportation: YES Lack of Food: Sometimes True Current Housing: I Have Housing Concerned About Future Housing: No Difficulty Paying Gas/Electric Bills: YES Difficulty Paying for Meds: YES Currently Unemployed: No Education: High School Diploma/GED Difficulty w/ Childcare or Family Care: No Living arrangements: with family Gender identity (if verbalized by the patient): Male Sexual Orientation (if Verbalized by the Patient): Straight or Heterosexual Spiritual care concerns: No Exam 2 Narrative: GENERAL APPEARANCE: WELL-DEVELOPED, WELL-NOURISHED SKIN: NORMAL COLOR HEAD: NORMOCEPHALIC, NONTRAUMATIC EYES: CLEAR CONJUNCTIVA NECK: SUPPLE, NONTENDER CHEST AND RESPIRATORY: AIRWAY PATENT, NO RESPIRATORY DISTRESS, NO ACCESSORY MUSCLE USE HEART: REGULAR RATE/RHYTHM ABDOMEN: SOFT, NONTENDER, NO ORGANOMEGALY, QUIET BOWEL SOUNDS VASCULAR: NORMAL PERIPHERAL PULSES, NORMAL CAPILLARY REFILL. MUSCULOSKELETAL: SEVERE LIMITED RANGE OF MOTION ACROSS THE LUMBAR AREA, NO BRUISES, NO SWELLING OR RASH, SEVERE DIFFUSE TENDERNESS. 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, NO GROSS MOTOR DEFICIT Course Vital Signs Vital signs: Vital Signs Temperature 37.0 C 09/08/24 14:36 Pulse Rate 79 09/08/24 14:36 Respiratory Rate 16 09/08/24 14:36 Blood Pressure 156/102 H 09/08/24 14:36 Pulse Oximetry 98 09/08/24 14:36 Oxygen Delivery Room Air 09/08/24 14:36 Temperature 37.0 C 09/08/24 14:36 Pulse Rate 59 L 09/08/24 17:17 Respiratory Rate 12 09/08/24 17:17 Blood Pressure 146/100 H 09/08/24 17:17 Pulse Oximetry 91 09/08/24 17:17 Oxygen Delivery Room Air 09/08/24 14:36 MDM - Back Pain/Injury MDM Narrative Medical decision making narrative: 44 YEARS OLD WHITE MALE CAME TO THE ED BY AMBULANCE FROM HOME WITH EXACERBATION OF CHRONIC LOWER BACK PAIN. HE DENIES ANY RECENT TRAUMA, BEEN HAVING MORE RIDING AND MORE PHYSICAL ACTIVITY AT HOME LATELY. VITAL SIGNS ARE STABLE PHYSICAL EXAMINATION CONSISTENT WITH SEVERE TENSE MUSCLE ACROSS THE LUMBAR AREA BILATERALLY, WITH SEVERE LIMITED RANGE OF MOTION AT THE LUMBAR AREA. DIFFERENTIAL DIAGNOSIS INCLUDE EXACERBATION OF CHRONIC LOWER BACK PAIN, MUSCULOSKELETAL SPASM, CT THORACIC AND LUMBAR SPINE SHOWED no acute compression fracture. Interval increase in size of the mass within the upper pole of the right kidney. Compared 2021. Patient was notified, about this result, a copy of the CT scan was given to the patient prior to discharge, at the bedside, the understand, and promise for follow-up with his family physician in 7 days. The pt was discharged to home.the pt,s condition upon discharge was fair,education was provided to the pt in reference to the final impression,discharge study results,treatment,prognosis and need for follow up . Differential Diagnosis Differential diagnosis: Likely lumbar radiculopathy and strain of lumbar region Lab Data Attestation: I reviewed the patient's lab results. 09/08/24 14:55 09/08/24 14:55 Labs: Lab Results 09/08/24 Range/Units 14:55 WBC 9.4 (4.5-10.0) K/mm3 RBC 5.30 (4.6-6.20) M/mm3 Hgb 13.8 L (14.0-18.0) g/dL Hct 42.1 (42.0-52.0) % MCV 79.4 L (80-100) fl MCH 26.0 (26-34) pg MCHC 32.8 (32-36) g/dl RDW 13.0 (11.5-14.5) % Plt Count 193 (150-375) k/mm3 MPV 10.2 (7.4-10.4) fl Immature Gran % (Auto) 0.3 (0-0.5) % Neut % (Auto) 63.6 (45.5-73.1) % Lymph % (Auto) 27.6 (18.3-44.2) % [place] % (Auto) 7.5 (2.6-8.5) % Eos % (Auto) 0.7 (0-4.4) % Baso % (Auto) 0.3 (0.2-1.2) % Lymph # (Auto) 2.58 (0.9-3.2) K/mm3 [place] # (Auto) 0.7 H (0.1-0.6) K/mm3 Eos # (Auto) 0.1 (0-0.3) K/mm3 Baso # (Auto) 0.0 (0.0-0.1) K/mm3 Abs Immat Gran (auto) 0.03 (0.00-0.031) K/mm3 Absolute Neuts (auto) 5.9 (1.3-6.7) K/mm3 Absolute Nucleated RBC 0.000 (0.0-0.012) K/mm3 Nucleated RBC % 0.0 (0.0-0.2) % Sodium 140 (137-145) mmol/L Potassium 3.1 L (3.4-5.0) mmol/L Chloride 107 (98-107) mmol/L Carbon Dioxide 24 (22-30) mmol/L Anion Gap 9 (4-12) mmol/L BUN 10 (9-20) mg/dL Creatinine 1.19 (0.7-1.3) mg/dL Estim Creat Clear Calc 82 ml/min Estimated GFR > 60 (59 - ) Glucose 101 (65-110) mg/dL Calcium 8.7 (8.4-10.2) mg/dL Total Bilirubin 1.0 (0.2-1.3) mg/dL AST 22 (17-59) U/L ALT 35 (6-50) U/L Alkaline Phosphatase 75 (38-126) U/L Total Protein 7.0 (6.3-8.2) g/dL Albumin 4.3 (3.5-5.1) g/dL Imaging Data Radiologist's impression: Impressions Thoracic/Lumbar Spine CT 09/08/24 18:03 Impression: No acute compression fracture, as detailed above. Interval increase in size of the mass within the upper pole of the right kidney, when compared with 2021 examination for which contrast enhanced CT or MRI is recommended for further evaluation (with renal mass protocol). Critical Care Time Critical Care Time Critical Care Time: No Discharge Plan Discharge Clinical Impression: Chronic lower back pain Patient Disposition: Home Condition: Improved Instructions: Chronic Back Pain (DC), Lower Back Exercises (ED) Additional Instructions: RETURN IF SYMPTOMS ARE WORSENING , CALL YOUR FAMILY PHYSICIAN FOR APPOINTMENT, TAKE TYLENOL NEEDED FOR ACHES AND PAIN, CONTINUE HOME MEDICATIONS. HEATING PAD MASSAGE CONTACT YOUR FAMILY PHYSICIAN, PAIN MANAGEMENT PHYSICIAN, YOUR PREVIOUS NEUROSURGEON FOR FOLLOW-UP. CT THORACIC AND LUMBAR SPINE TODAY SHOWED INTERVAL INCREASE IN SIZE OF THE MASS WITHIN THE UPPER POLE OF THE RIGHT KIDNEY, WHEN COMPARED TO WITH 2021 EXAMINATION. CONTACT YOUR FAMILY PHYSICIAN SOON POSSIBLE FOR FURTHER EVALUATION INCLUDING CT SCAN OF THE ABDOMEN AND PELVIS WITH CONTRAST OR MRI. A COPY OF THE CT SCAN REPORT IS ATTACHED TO YOUR DISCHARGE PAPER A REMINDER TO FOLLOW-UP WITH YOUR FAMILY PHYSICIAN WITHIN 7 DAYS FOR FURTHER EVALUATION OF THE KIDNEY MASS Patient Language: Algerian Prescriptions: New diazepam [Valium] 5 mg tablet 5 mg PO QID PRN (Reason: muscle spasm) Qty: 14 0RF diclofenac sodium 75 mg tablet,delayed release (DR/EC) 75 mg PO BID PRN (Reason: pain) Qty: 20 0RF dexamethasone 4 mg tablet 4 mg PO Q8H Qty: 10 0RF No Action doxycycline monohydrate 100 mg tablet 100 mg PO BID Qty: 14 0RF methylprednisolone [Medrol (Forrets)] 4 mg tablets,dose pack See Rx Instructions .ROUTE .COMPLEX Qty: 21 0RF Rx Instructions: for 6 days amoxicillin-pot clavulanate 875-125 mg tablet 1 tablet PO Q12H Qty: 20 0RF ciprofloxacin-dexamethasone 0.3-0.1 % drops,suspension 4 drp EACH EAR Q12H 7 Days Qty: 7.5 0RF duloxetine 60 mg capsule,delayed release(DR/EC) 60 mg PO DAILY Qty: 90 1RF Rx Instructions: TAKE ONE CAPSULE BY MOUTH ONCE DAILY trazodone 50 mg tablet 100 mg PO QHS Qty: 180 1RF losartan 100 mg tablet 100 mg PO DAILY Qty: 30 0RF amlodipine 10 mg tablet 10 mg PO DAILY Qty: 30 0RF Follow-up/Referrals: Jeromy Quintanilla MD [Primary Care Provider] -
[2024-09-08] MEDS: KETOROLAC 30 MG/ML VIAL (*BKC) IV PUSH (16:11)
[2024-09-08] MEDS: ONDANSETRON INJ 4 MG/2 ML VIAL IV PUSH (16:11)
[2024-09-08] MEDS: diazePAM INJ (*CRX) 10 MG/2 ML SYRINGE 5 MG IV PUSH (16:13)
[2024-09-08] MEDS: HYDROmorphone HCL INJ (*CRX) 2 MG/ML VIAL 0.5 MG IV PUSH ×2 (16:13→17:10)
--- OUTSIDE RECORDS SUMMARY | 2024-09-08 17:19 | XMS_ITS | Clinical Summary ---
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 Temperature - - Respiratory Rate - - Oxygen Saturation - - Inhaled Oxygen Concentration - - Weight 135.6 kg (299 lb) 01/24/2013 10:26 AM CDT Height 177.8 cm (5' 10 ) 11/26/2012 11:19 AM CDT Body Mass Index 42.9 11/26/2012 11:19 AM CDT Plan of Treatment Health Maintenance Due Date Last Done Comments Colorectal Cancer Screening Colonoscopy (10 Years) 1979 Annual Physical 1982 Hepatitis C 1997 DTaP, Tdap and Td Vaccines ( 1 - Tdap) 1998 Hepatitis B Vaccines (1 of 3 - 19+ 3-dose series) 1998 COVID-19 Vaccine (2023-2 5 season) 2024 HPV Vaccines Aged Out No longer eligi ble based on patient's age to complete this topic Meningococcal B Vaccine Aged Out No l onger eligible based on patient's age to complete this topic Meningococcal Vaccine Aged Out No jayne arthur eligible based on patient's age to complete this topic Pneumococcal Vaccine: Pediat rics (0 to 5 Years) and At-Risk Patients (6 to 49 Years) Aged Out No longer eligible b ased on patient's age to complete this topic RSV Immunizations Under 20 Months Aged Out No longer eligible based on patient's age to complete this topic Care Teams Ladle Filler Relationship Specialty Start Date End Date Jaki Kaur MD PCP - General 12/01/12
--- OUTSIDE RECORDS SUMMARY | 2024-09-08 17:19 | XMS_ITS | Encounter Summary ---
Author Organization [facility] Address [address] [place] [id number] Care Team Providers Care Elevator Runner Name Role Phone Jaki Kaur MD Primary Care Provider Unavailab le Encounter Details Date Type Department Care Team (Latest Contact Info) Description 03/23/2018 Abstract [facility] Natali Israel MD Social History Tobacco Use Types Packs/Day Years Used Date Smoking Tobacco: Never Assessed Sex and Gender Information Value Date Recorded Sex Assigned at Not on file Legal Sex Male 7:17 PM CDT Gender Identity Not on file Sexual Orientation Not on file documented as of this encounter Plan of Treatment Not on file documented as of this encounter Visit Diagnoses Not on filedocumented in this encounter Care Teams Elevator Runner Relationship Specialty Start Date End Date Jaki Kaur MD PCP - General 12/01/12 documented as of this encounter
[2024-09-08] MEDS: METOCLOPRAMIDE HCL INJ 10 MG/2 ML VIAL IV PUSH (17:55)
[2024-09-08] MEDS: diphenhydrAMINE HCl INJ 50 MG/ML VIAL IV PUSH (17:55)
--- NOTE | 2024-09-08 18:31 | PC.NURSE ---
EDP gave patient copy of CT scan report prior to discharge.
== END 2024-09-08 18:35 | disposition home or self-care (01) ==
PROVIDERS: Student in an Organized Health Care Education/Training Program; Emergency Provider Emergency Medicine; PCP Family Medicine Adolescent Medicine
DX: M54.50 Low back pain, unspecified (principal); G89.29 Other chronic pain; I10 Essential (primary) hypertension; E78.5 Hyperlipidemia, unspecified; M19.90 Unspecified osteoarthritis, unspecified site; F41.9 Anxiety disorder, unspecified; Z87.891 Personal history of nicotine dependence; Z79.899 Other long term (current) drug therapy; N28.89 Other specified disorders of kidney and ureter
CPT/HCPCS: 36415; 72128; 72131; 80053; 85025; 96374; 96375; 96376; 99284; J1171; J1200; J1885; J2405; J2765; J3360

== ENCOUNTER 2024-10-28 14:01 | Outpatient (CLI) | payer OTHER, SELFPAY ==
--- NOTE | ~2024-10-28 | MR_ITS ---
MRI of the abdomen: Clinical indication: Renal mass. Technique: Coronal SSFSE ARC, WATER:coronal LAVA-FLEX, Coronal 2D FIESTA FatSat, Axial SSFSE BH ARC, Axial 3D DualEcho BH, Axial SSFSE-IR, Axial DWI b=500, Axial 2D FIESTA FatSat, pre and dynamic postco ntrast Axial LAVA ARC, postcontrast Coronal In and Opposed phase LAVA FLEX. Following intravenous adm inistration of 20 cc MultiHance gadolinium, T1-weighted fat-sat imaging was performed in the axial an d coronal planes. Findings: Gallbladder absent. The common bile duct is normal in course and caliber. No filling defect s are seen within the CBD. No evidence of intrahepatic biliary ductal dilatation. The pancreatic duct is normal in size. Liver, spleen, pancreas, and adrenal glands appear normal. Benign cyst of the right upper renal pole measures 1.7 cm in diameter. No suspicious renal mass identified in either side. Left kidney unremark able. The aorta and the paraaortic regions appear normal. No abnormal postcontrast enhancement identified. Impression: 1.7 cm benign cyst at the upper pole the right kidney. Reviewed, dictated and finalized at [facility]. Impression: 1.7 cm benign cyst at the upper pole the right kidney.
== END 2024-10-28 14:02 | disposition home or self-care (01) ==
PROVIDERS: PCP Family Medicine Adolescent Medicine; Visit Provider Family Medicine
DX: N28.1 Cyst of kidney, acquired (principal)
CPT/HCPCS: 74183; A9577

== ENCOUNTER 2025-01-17 19:53 | Emergency (ER) | payer OTHER, SELFPAY ==
[2025-01-17] VITALS (32 sets, daily range): BP systolic 112–159; BP diastolic 72–107; PULSE 62–104; RESP 10–25; TEMP 36.9; O2SAT 92–100
--- NOTE | ~2025-01-17 | XR_ITS ---
EXAMINATION: XR chest 1V portable 01/17/2025 20:17 INDICATION: Chest pain PROCEDURE: AP portable chest COMPARISON: Comparison to multiple prior studies sequentially, with oldest reviewed study dated 04/20/2014. FINDINGS: The lungs are clear. The cardiomediastinal silhouette is within normal limits. There are no pleural effusions. There is no pneumothorax suspected. There are scattered calcified granulomas in the lungs. IMPRESSION: 1: NO ACUTE CARDIOPULMONARY DISEASE. Reviewed, dictated and finalized at location O.
--- NOTE | ~2025-01-17 | CT_ITS ---
EXAMINATION: CT diagnostic chest wo con DATE: 01/17/2025 21:31 INDICATION: Chest pain TECHNIQUE: Computed tomography (CT) of the chest was performed without intravenous contrast. The dose-length product was 602.27 mGy-cm. Automated exposure control and iterative reconstruction technique were employed. COMPARISON: CT dated 01/26/2018 FINDINGS: Heart size normal. No thoracic lymphadenopathy. There are multiple calcified granulomas of the lungs. No significant vascular abnormality. There is a 1.6 cm right renal cyst. Status post cholecystectomy. No endobronchial lesions. No focal airspace consolidation. No pneumothorax. Mild thoracic spondylosis. No acute osseous abnormality. IMPRESSION: 1. No acute abnormality. Reviewed, dictated and finalized at location O. IMPRESSION: 1. No acute abnormality.
--- NOTE | 2025-01-17 19:55 | ECG_ITS ---
Test Date: 2025-01-17 20:01:13 Measurements Intervals [place] Rate: 72 P: 23 NH: 180 QRS: 10 QRSD: 101 T: 50 QT: 385 QTc: 423 Interpretive Statements SINUS RHYTHM POSSIBLE RIGHT VENTRICULAR CONDUCTION DELAY [RSR (QR) IN V1/V2] NONSPECIFIC T-WAVE ABNORMALITY ABNORMAL ECG No previous ECG available for comparison Electronically Signed On 01-18-2025 11:09:05 CDT by Jorge Chowdary M.D.
[2025-01-17] MEDS: NITROGLYCERIN SL 0.4 MG TABLET SUBLINGUAL (20:24)
[2025-01-17 20:25] LABS: Hematocrit 42.5 % (42.0-52.0); Hemoglobin 13.8 g/dL (14.0-18.0); Immature Granulocyte Percent A 0.3 % (0-0.5); Lymphocytes Absolute Auto 1.68 K/mm3 (0.9-3.2); Mean Corpuscular HGB Conc 32.5 g/dl (32-36); Mean Corpuscular Hemoglobin 24.4 pg (26-34); Mean Corpuscular Volume 75.2 fl (80-100); Nucleated Red Blood Cells Absolute Auto 0.000 K/mm3 (0.0-0.012); Nucleated Red Blood Cells Perc 0.0 % (0.0-0.2); Platelet Count Result 195 k/mm3 (150-375); Red Blood Count 5.65 M/mm3 (4.6-6.20); White Blood Count 7.2 K/mm3 (4.5-10.0)
--- NOTE | 2025-01-17 20:31 | PC.NURSE ---
nitro did not help with cp (still 8/10 on pain scale). pt appears anxious and has c/o headache now also.
[2025-01-17] MEDS: diazePAM INJ (*CRX) 10 MG/2 ML SYRINGE 5 MG IV PUSH (20:34)
[2025-01-17 20:37] LABS: INR 1.1; Prothrombin Time 13.7 Seconds (11.1-14.7)
[2025-01-17 20:38] LABS: Partial Thromboplastin Time 24.8 Seconds (22.3-36.8)
[2025-01-17 20:53] LABS: Alanine Aminotransferase 34 U/L (6-50); Albumin Level 4.6 g/dL (3.5-5.1); Alkaline Phosphatase 76 U/L (38-126); Anion Gap 12 mmol/L (4-12); Aspartate Amino Transferase 33 U/L (17-59); Bilirubin,Total 0.9 mg/dL (0.2-1.3); Blood Urea Nitrogen 9 mg/dL (9-20); Calcium 9.6 mg/dL (8.4-10.2); Carbon Dioxide 22 mmol/L (22-30); Chloride 107 mmol/L (98-107); Estimated CRCL calculation 97 ml/min; Estimated Glomerular Filt Rate > 60; Glucose 116 mg/dL (65-110); Lipase 108 U/L (23-300); Potassium 3.0 mmol/L (3.4-5.0); Sodium 141 mmol/L (137-145); Total Protein 8.1 g/dL (6.3-8.2)
[2025-01-17 21:08] LABS: NT Pro B Type Natriuretic Pept < 20 pg/mL (19.9-100); Troponin I < 0.012 ng/mL (0.000-0.034)
[2025-01-17] MEDS: MORPHINE SULFATE (*CRX) 4 MG/ML INJ IV PUSH (21:14)
--- NOTE | 2025-01-17 21:39 | ED.GENADULT ---
HPI - General Adult General Chief complaint: Chest Pain <Carlos Benavides MD - Last Filed: 01/17/25 21:52> Stated complaint: CP, HTN, ARM NUMBNESS/TINGLING <Carlos Benavides MD - Last Filed: 01/17/25 21:52> History of Present Illness HPI narrative: This is a 44-year-old male presenting ED with chief complaint of chest pain. Patient said that chest pain started 1 hour prior to arrival. At 1st was a heaviness in the center of his chest and is now sharp around his left breast and radiates up through his back into his shoulder arm. Patient says he has had this happen in the past and was actually admitted urine evaluated by Cardiology and is deemed to be noncardiac. At that time it is thought that his chest pain was closely related to his anxiety mental state. Patient notes that he has been very irritable over the last 3 days as he has been fighting with his . Patient states he treats his anxiety with bleeding has been out for the last for 5 days. The patient denies any association with exertion, vomiting or diaphoresis. No fevers chills productive cough or lower extremity edema. No risk factors for DVT PE. <Carlos Benavides MD - Last Filed: 01/17/25 21:52> Related Data Allergies/adverse reactions: Allergies Allergy/AdvReac Type Severity Reaction Status Date / Time No Known Allergies Allergy Verified 10/03/24 15:35 <Carlos Benavides MD - Last Filed: 01/17/25 21:52> [facility] Past Medical History Medical History: Medical History Anxiety Arthritis Back pain with history of spinal surgery (Unknown) Chronic low back pain Essential hypertension (Unknown) Hyperlipidemia (Unknown) Renal mass, right <Carlos Benavides MD - Last Filed: 01/17/25 21:52> Family History Family History: Family History Mother Asthma Depression Hypertension Family history of arthritis Mother Depression Father Depression Hypertension Diabetes mellitus Family history of arthritis Family history of hearing loss Family history of mental disorder Grandparent Asthma Family history of hearing loss Sibling Asthma Family history of attention deficit hyperactivity disorder (ADHD) Grandparent Hypertension Family history of arthritis Family history of cardiovascular disease Family history of hearing loss Other Cerebrovascular accident Diabetes mellitus Family history of alcoholism Family history of malignant neoplasm Other Family history of migraine headaches Family history of obesity Family history of seizure disorder <Carlos Benavides MD - Last Filed: 01/17/25 21:52> Social History Social History: Social History Social History: Caffeine-coffee Smoking packs per day: 1 Smoking cigarettes per day: 20.0 Years smoked: 13 Smoking pack-years: 13.00 Smoking status: Never smoker Second hand tobacco smoke exposure: Yes Smoking end date: 07/07/07 Alcohol intake: former Substance use: current Substance use type: marijuana Other substance usage details: Daily usage Lack of Transportation: YES Lack of Food: Sometimes True Current Housing: I Have Housing Concerned About Future Housing: No Difficulty Paying Gas/Electric Bills: YES Difficulty Paying for Meds: YES Currently Unemployed: No Education: High School Diploma/GED Difficulty w/ Childcare or Family Care: No Living arrangements: with family Gender identity (if verbalized by the patient): Male Sexual Orientation (if Verbalized by the Patient): Straight or Heterosexual Spiritual care concerns: No <Carlos Benavides MD - Last Filed: 01/17/25 21:52> Exam Narrative: APPEARANCE: No apparent distress. Head: atraumatic. EYES: EOMI, NOSE: Atraumatic NECK: Trachea midline RESPIRATORY: No increased rate of breathing clear to auscultation CARDIOVASCULAR: RRR, no peripheral edema, +2 pulses in all extremities ABDOMINAL: Non-distended soft nontender MUSCULOSKELETAl: No obvious deformities NEURO: Alert. Cranial nerves 2-12 grossly intact. Sensation light touch, motor function cerebellar function intact for 4 extremities. Gait exam was normal. SKIN:: Warm, dry. Normal color PSYCHIATRIC: Normal affect <Carlos Benavides MD - Last Filed: 01/17/25 21:52> Course Vital Signs Vital signs: Vital Signs Temperature 98.4 F 01/17/25 19:59 Pulse Rate 73 01/17/25 19:59 Respiratory Rate 13 01/17/25 19:59 Blood Pressure 156/107 H 01/17/25 19:59 Pulse Oximetry 99 01/17/25 19:59 Oxygen Delivery Room Air 01/17/25 19:59 Temperature 98.4 F 01/17/25 19:59 Pulse Rate 65 01/17/25 23:51 Respiratory Rate 11 L 01/17/25 23:51 Blood Pressure 126/80 01/17/25 23:51 Pulse Oximetry 99 01/17/25 23:51 Oxygen Delivery Room Air 01/17/25 20:15 <Carlos Benavides MD - Last Filed: 01/17/25 21:52> Vital Signs Temperature 98.4 F 01/17/25 19:59 Pulse Rate 73 01/17/25 19:59 Respiratory Rate 13 01/17/25 19:59 Blood Pressure 156/107 H 01/17/25 19:59 Pulse Oximetry 99 01/17/25 19:59 Oxygen Delivery Room Air 01/17/25 19:59 Temperature 98.4 F 01/17/25 19:59 Pulse Rate 65 01/17/25 23:51 Respiratory Rate 11 L 01/17/25 23:51 Blood Pressure 126/80 01/17/25 23:51 Pulse Oximetry 99 01/17/25 23:51 Oxygen Delivery Room Air 01/17/25 20:15 <Steven Arrieta MD - Last Filed: 01/18/25 02:19> Medical Decision Making MDM Narrative Medical decision making narrative: -Course: 44-year-old male the ED with chief complaint of chest pain. Pain sounds atypical. Initially treated with aspirin and nitro with no effect. Review of the EMR shows that his last admission his chest pain seemed to be tightly tied to his anxiety/depression. So he was given Valium with no relief. He was then given morphine with no relief. He was then given Maalox and is pending response to treatment. Patient's workup is unremarkable. His EKG is without ischemic changes. Troponins negative x1. Second troponin is pending. His D-dimer was undetectable. Potassium was 3.0 which has been repleted. Chest x-ray is clear. CT non-con is without acute abnormality. This time no life-threatening cause of chest pain have been identified. Patient has been signed out to the oncoming physician pending repeat troponin. If pain is not controlled he will likely need admission. -DDX includes but is not limited to: ACS PE dissection pneumonia, pneumothorax, MSK pain, anxiety related chest pain <Carlos Benavides MD - Last Filed: 01/17/25 21:52> Vital Signs Vital Signs: Vital Signs Temperature 98.4 F 01/17/25 19:59 Pulse Rate 73 01/17/25 19:59 Respiratory Rate 13 01/17/25 19:59 Blood Pressure 156/107 H 01/17/25 19:59 Pulse Oximetry 99 01/17/25 19:59 Oxygen Delivery Room Air 01/17/25 19:59 Temperature 98.4 F 01/17/25 19:59 Pulse Rate 65 01/17/25 23:51 Respiratory Rate 11 L 01/17/25 23:51 Blood Pressure 126/80 01/17/25 23:51 Pulse Oximetry 99 01/17/25 23:51 Oxygen Delivery Room Air 01/17/25 20:15 <Carlos Benavides MD - Last Filed: 01/17/25 21:52> Vital Signs Temperature 98.4 F 01/17/25 19:59 Pulse Rate 73 01/17/25 19:59 Respiratory Rate 13 01/17/25 19:59 Blood Pressure 156/107 H 01/17/25 19:59 Pulse Oximetry 99 01/17/25 19:59 Oxygen Delivery Room Air 01/17/25 19:59 Temperature 98.4 F 01/17/25 19:59 Pulse Rate 65 01/17/25 23:51 Respiratory Rate 11 L 01/17/25 23:51 Blood Pressure 126/80 01/17/25 23:51 Pulse Oximetry 99 01/17/25 23:51 Oxygen Delivery Room Air 01/17/25 20:15 <Steven Arrieta MD - Last Filed: 01/18/25 02:19> Lab Data Result diagrams: 01/17/25 20:12 01/17/25 20:12 <Carlos Benavides MD - Last Filed: 01/17/25 21:52> Labs: Lab Results 01/17/25 01/17/25 01/17/25 Range/Units 20:12 20:17 21:58 WBC 7.2 (4.5-10.0) K/mm3 RBC 5.65 (4.6-6.20) M/mm3 Hgb 13.8 L (14.0-18.0) g/dL Hct 42.5 (42.0-52.0) % MCV 75.2 L (80-100) fl MCH 24.4 L (26-34) pg MCHC 32.5 (32-36) g/dl RDW 14.3 (11.5-14.5) % Plt Count 195 (150-375) k/mm3 MPV 9.7 (7.4-10.4) fl Immature Gran % (Auto) 0.3 (0-0.5) % Neut % (Auto) 68.6 (45.5-73.1) % Lymph % (Auto) 23.5 (18.3-44.2) % [place] % (Auto) 7.0 (2.6-8.5) % Eos % (Auto) 0.3 (0-4.4) % Baso % (Auto) 0.3 (0.2-1.2) % Lymph # (Auto) 1.68 (0.9-3.2) K/mm3 [place] # (Auto) 0.5 (0.1-0.6) K/mm3 Eos # (Auto) 0.0 (0-0.3) K/mm3 Baso # (Auto) 0.0 (0.0-0.1) K/mm3 Abs Immat Gran (auto) 0.02 (0.00-0.031) K/mm3 Absolute Neuts (auto) 4.9 (1.3-6.7) K/mm3 Absolute Nucleated RBC 0.000 (0.0-0.012) K/mm3 Nucleated RBC % 0.0 (0.0-0.2) % PT 13.7 (11.1-14.7) Seconds INR 1.1 APTT 24.8 (22.3-36.8) Seconds D-Dimer < 0.27 (<0.48) ug/mL Sodium 141 (137-145) mmol/L Potassium 3.0 L (3.4-5.0) mmol/L Chloride 107 (98-107) mmol/L Carbon Dioxide 22 (22-30) mmol/L Anion Gap 12 (4-12) mmol/L BUN 9 (9-20) mg/dL Creatinine 1.14 (0.7-1.3) mg/dL Estim Creat Clear Calc 97 ml/min Estimated GFR > 60 (59 - ) Glucose 116 H (65-110) mg/dL Calcium 9.6 (8.4-10.2) mg/dL Total Bilirubin 0.9 (0.2-1.3) mg/dL AST 33 (17-59) U/L ALT 34 (6-50) U/L Alkaline Phosphatase 76 (38-126) U/L Troponin I < 0.012 (0.000-0.034) ng/mL NT-Pro-B Natriuret Pep < 20 (19.9-100) pg/mL Total Protein 8.1 (6.3-8.2) g/dL Albumin 4.6 (3.5-5.1) g/dL Lipase 108 (23-300) U/L Urine Opiates Screen Positive A (Negative) Urine Methadone Screen Negative (Negative) Ur Barbiturates Screen Negative (Negative) Ur Phencyclidine Scrn Negative (Negative) Ur Amphetamine Screen Negative (Negative) U Benzodiazepines Scrn Positive A (Negative) Urine Cocaine Screen Negative (Negative) U Cannabinoids Screen Positive A (Negative) Ethyl Alcohol < 10 (<10) mg/dL 01/17/25 Range/Units 23:03 WBC (4.5-10.0) K/mm3 RBC (4.6-6.20) M/mm3 Hgb (14.0-18.0) g/dL Hct (42.0-52.0) % MCV (80-100) fl MCH (26-34) pg MCHC (32-36) g/dl RDW (11.5-14.5) % Plt Count (150-375) k/mm3 MPV (7.4-10.4) fl Immature Gran % (Auto) (0-0.5) % Neut % (Auto) (45.5-73.1) % Lymph % (Auto) (18.3-44.2) % [place] % (Auto) (2.6-8.5) % Eos % (Auto) (0-4.4) % Baso % (Auto) (0.2-1.2) % Lymph # (Auto) (0.9-3.2) K/mm3 [place] # (Auto) (0.1-0.6) K/mm3 Eos # (Auto) (0-0.3) K/mm3 Baso # (Auto) (0.0-0.1) K/mm3 Abs Immat Gran (auto) (0.00-0.031) K/mm3 Absolute Neuts (auto) (1.3-6.7) K/mm3 Absolute Nucleated RBC (0.0-0.012) K/mm3 Nucleated RBC % (0.0-0.2) % PT (11.1-14.7) Seconds INR APTT (22.3-36.8) Seconds D-Dimer (<0.48) ug/mL Sodium (137-145) mmol/L Potassium (3.4-5.0) mmol/L Chloride (98-107) mmol/L Carbon Dioxide (22-30) mmol/L Anion Gap (4-12) mmol/L BUN (9-20) mg/dL Creatinine (0.7-1.3) mg/dL Estim Creat Clear Calc ml/min Estimated GFR (59 - ) Glucose (65-110) mg/dL Calcium (8.4-10.2) mg/dL Total Bilirubin (0.2-1.3) mg/dL AST (17-59) U/L ALT (6-50) U/L Alkaline Phosphatase (38-126) U/L Troponin I < 0.012 (0.000-0.034) ng/mL NT-Pro-B Natriuret Pep (19.9-100) pg/mL Total Protein (6.3-8.2) g/dL Albumin (3.5-5.1) g/dL Lipase (23-300) U/L Urine Opiates Screen (Negative) Urine Methadone Screen (Negative) Ur Barbiturates Screen (Negative) Ur Phencyclidine Scrn (Negative) Ur Amphetamine Screen (Negative) U Benzodiazepines Scrn (Negative) Urine Cocaine Screen (Negative) U Cannabinoids Screen (Negative) Ethyl Alcohol (<10) mg/dL <Carlos Benavides MD - Last Filed: 01/17/25 21:52> Lab Results 01/17/25 01/17/25 01/17/25 Range/Units 20:12 20:17 21:58 WBC 7.2 (4.5-10.0) K/mm3 RBC 5.65 (4.6-6.20) M/mm3 Hgb 13.8 L (14.0-18.0) g/dL Hct 42.5 (42.0-52.0) % MCV 75.2 L (80-100) fl MCH 24.4 L (26-34) pg MCHC 32.5 (32-36) g/dl RDW 14.3 (11.5-14.5) % Plt Count 195 (150-375) k/mm3 MPV 9.7 (7.4-10.4) fl Immature Gran % (Auto) 0.3 (0-0.5) % Neut % (Auto) 68.6 (45.5-73.1) % Lymph % (Auto) 23.5 (18.3-44.2) % [place] % (Auto) 7.0 (2.6-8.5) % Eos % (Auto) 0.3 (0-4.4) % Baso % (Auto) 0.3 (0.2-1.2) % Lymph # (Auto) 1.68 (0.9-3.2) K/mm3 [place] # (Auto) 0.5 (0.1-0.6) K/mm3 Eos # (Auto) 0.0 (0-0.3) K/mm3 Baso # (Auto) 0.0 (0.0-0.1) K/mm3 Abs Immat Gran (auto) 0.02 (0.00-0.031) K/mm3 Absolute Neuts (auto) 4.9 (1.3-6.7) K/mm3 Absolute Nucleated RBC 0.000 (0.0-0.012) K/mm3 Nucleated RBC % 0.0 (0.0-0.2) % PT 13.7 (11.1-14.7) Seconds INR 1.1 APTT 24.8 (22.3-36.8) Seconds D-Dimer < 0.27 (<0.48) ug/mL Sodium 141 (137-145) mmol/L Potassium 3.0 L (3.4-5.0) mmol/L Chloride 107 (98-107) mmol/L Carbon Dioxide 22 (22-30) mmol/L Anion Gap 12 (4-12) mmol/L BUN 9 (9-20) mg/dL Creatinine 1.14 (0.7-1.3) mg/dL Estim Creat Clear Calc 97 ml/min Estimated GFR > 60 (59 - ) Glucose 116 H (65-110) mg/dL Calcium 9.6 (8.4-10.2) mg/dL Total Bilirubin 0.9 (0.2-1.3) mg/dL AST 33 (17-59) U/L ALT 34 (6-50) U/L Alkaline Phosphatase 76 (38-126) U/L Troponin I < 0.012 (0.000-0.034) ng/mL NT-Pro-B Natriuret Pep < 20 (19.9-100) pg/mL Total Protein 8.1 (6.3-8.2) g/dL Albumin 4.6 (3.5-5.1) g/dL Lipase 108 (23-300) U/L Urine Opiates Screen Positive A (Negative) Urine Methadone Screen Negative (Negative) Ur Barbiturates Screen Negative (Negative) Ur Phencyclidine Scrn Negative (Negative) Ur Amphetamine Screen Negative (Negative) U Benzodiazepines Scrn Positive A (Negative) Urine Cocaine Screen Negative (Negative) U Cannabinoids Screen Positive A (Negative) Ethyl Alcohol < 10 (<10) mg/dL 01/17/25 Range/Units 23:03 WBC (4.5-10.0) K/mm3 RBC (4.6-6.20) M/mm3 Hgb (14.0-18.0) g/dL Hct (42.0-52.0) % MCV (80-100) fl MCH (26-34) pg MCHC (32-36) g/dl RDW (11.5-14.5) % Plt Count (150-375) k/mm3 MPV (7.4-10.4) fl Immature Gran % (Auto) (0-0.5) % Neut % (Auto) (45.5-73.1) % Lymph % (Auto) (18.3-44.2) % [place] % (Auto) (2.6-8.5) % Eos % (Auto) (0-4.4) % Baso % (Auto) (0.2-1.2) % Lymph # (Auto) (0.9-3.2) K/mm3 [place] # (Auto) (0.1-0.6) K/mm3 Eos # (Auto) (0-0.3) K/mm3 Baso # (Auto) (0.0-0.1) K/mm3 Abs Immat Gran (auto) (0.00-0.031) K/mm3 Absolute Neuts (auto) (1.3-6.7) K/mm3 Absolute Nucleated RBC (0.0-0.012) K/mm3 Nucleated RBC % (0.0-0.2) % PT (11.1-14.7) Seconds INR APTT (22.3-36.8) Seconds D-Dimer (<0.48) ug/mL Sodium (137-145) mmol/L Potassium (3.4-5.0) mmol/L Chloride (98-107) mmol/L Carbon Dioxide (22-30) mmol/L Anion Gap (4-12) mmol/L BUN (9-20) mg/dL Creatinine (0.7-1.3) mg/dL Estim Creat Clear Calc ml/min Estimated GFR (59 - ) Glucose (65-110) mg/dL Calcium (8.4-10.2) mg/dL Total Bilirubin (0.2-1.3) mg/dL AST (17-59) U/L ALT (6-50) U/L Alkaline Phosphatase (38-126) U/L Troponin I < 0.012 (0.000-0.034) ng/mL NT-Pro-B Natriuret Pep (19.9-100) pg/mL Total Protein (6.3-8.2) g/dL Albumin (3.5-5.1) g/dL Lipase (23-300) U/L Urine Opiates Screen (Negative) Urine Methadone Screen (Negative) Ur Barbiturates Screen (Negative) Ur Phencyclidine Scrn (Negative) Ur Amphetamine Screen (Negative) U Benzodiazepines Scrn (Negative) Urine Cocaine Screen (Negative) U Cannabinoids Screen (Negative) Ethyl Alcohol (<10) mg/dL <Steven Arrieta MD - Last Filed: 01/18/25 02:19> Medical Decision Making MDM Documentation: Patient signed out pending repeat troponin and admission. Patient continued to have pain despite the medications above so he was given Dilaudid, Toradol, Lidoderm. He did have complete resolution of his pain. Repeat troponin was negative. Repeat EKG showed no concerning findings. Low suspicion for any cardiac events at this time. Heart score 3. He was given a referral to Cardiology for further evaluation. He was also advised to call his PCP in the next week for re-evaluation. Patient is awaiting initial evaluation by pain management the end of this month. Patient was agreeable to this plan. Given strict return precautions. <Steven Arrieta MD - Last Filed: 01/18/25 02:19> Discharge Plan Discharge Clinical Impression: Chest pain <Carlos Benavides MD - Last Filed: 01/17/25 21:52> Patient Disposition: Home <Carlos Benavides MD - Last Filed: 01/17/25 21:52> Condition: Stable <Carlos Benavides MD - Last Filed: 01/17/25 21:52> Instructions: Antibiotic Form, Chest Pain (ED) <Carlos Benavides MD - Last Filed: 01/17/25 21:52> Additional Instructions: Lab work and imaging showed no evidence of heart damage or clots in the lungs or other significant abnormalities. Follow up with your PCP in the next week for reevaluation. Return to the ED for new or worsening symptoms. For pain, discomfort or temperature greater than or equal to 100.8 ?F please alternate the following 2 medications as needed. First medication- acetaminophen/Tylenol- 1000mg every 6-8 hours as needed for above indications. Second medication- ibuprofen/Motrin-600mg every 6-8 hours as needed for above indication. <Carlos Benavides MD - Last Filed: 01/17/25 21:52> Patient Language: Korean <Carlos Benavides MD - Last Filed: 01/17/25 21:52> Prescriptions: No Action dicyclomine 20 mg tablet 20 mg PO QID PRN (Reason: abdominal pain) Qty: 30 0RF trazodone 50 mg tablet 100 mg PO QHS Qty: 180 1RF omeprazole 20 mg capsule,delayed release(DR/EC) 20 mg PO DAILY Qty: 30 5RF amlodipine 10 mg tablet 10 mg PO DAILY Qty: 90 0RF losartan 100 mg tablet 100 mg PO DAILY Qty: 90 0RF <Carlos Benavides MD - Last Filed: 01/17/25 21:52> Follow-up/Referrals: Rory Fernandez MD [Physician, Cardiology] Jeromy Quintanilla MD [Primary Care Provider, Family Practice] <Carlos Benavides MD - Last Filed: 01/17/25 21:52> Quality HEART score for chest pain patients History: slightly suspicious <Carlos Benavides MD - Last Filed: 01/17/25 21:52> ECG: normal <Carlos Benavides MD - Last Filed: 01/17/25 21:52> Age: < or = to 45 years <Carlos Benavides MD - Last Filed: 01/17/25 21:52> Risk factors: 1 or 2 risk factors <Carlos Benavides MD - Last Filed: 01/17/25 21:52> Troponin: < or = to 1x normal limit <Carlos Benavides MD - Last Filed: 01/17/25 21:52> Heart score: 1 <Carlos Benavides MD - Last Filed: 01/17/25 21:52> 1 <Steven Arrieta MD - Last Filed: 01/18/25 02:19>
[2025-01-17] MEDS: POTASSIUM CHLORIDE 20 MEQ ER TABLET 40 MEQ PO (22:04)
[2025-01-17] MEDS: MAG HYDROX/AL HYDROX/SIMETH 30 ML UDC PO (22:05)
[2025-01-17 22:22] LABS: Cannabinoid Screen Urine Positive (Negative)
[2025-01-17] MEDS: HYDROmorphone HCL INJ (*CRX) 1 MG/ML SYR IV PUSH (22:55)
[2025-01-17] MEDS: KETOROLAC 30 MG/ML VIAL (*BKC) IV PUSH (22:55)
[2025-01-17] MEDS: LIDOCAINE 5% PATCH 1 PATCH TRANSDERM (22:58)
--- NOTE | 2025-01-17 23:12 | ECG_ITS ---
Test Date: 2025-01-17 22:58:58 Measurements Intervals [place] Rate: 64 P: 32 AL: 182 QRS: 3 QRSD: 100 T: 7 QT: 427 QTc: 441 Interpretive Statements SINUS RHYTHM NONSPECIFIC ST & T-WAVE ABNORMALITY ABNORMAL ECG Compared to ECG 01/17/2025 20:01:13 No significant changes Electronically Signed On 01-18-2025 11:11:03 CDT by Jorge Chowdary M.D.
[2025-01-17 23:32] LABS: Troponin I < 0.012 ng/mL (0.000-0.034)
== END 2025-01-17 23:56 | disposition home or self-care (01) ==
PROVIDERS: Emergency Provider Emergency Medicine; PCP Family Medicine Adolescent Medicine
DX: R07.9 Chest pain, unspecified (principal); I10 Essential (primary) hypertension; E78.5 Hyperlipidemia, unspecified; F41.9 Anxiety disorder, unspecified
CPT/HCPCS: 36415; 71045; 71250; 80053; 80307; 82077; 83690; 83880; 84484; 85025; 85380; 85610; 85730; 93005; 96361; 96374; 96375; 99284; A9270; J1171; J1885; J2270; J3360